=== PATIENT | female | born 1970 | race Caucasian/White ===

== ENCOUNTER → 2017-05-24 | Outpatient (CLI) | payer BC ==
[2017-05-24 17:19] LABS: Basophils # (A) 0.1 k/uL (0-0.2); Basophils % (A) 1 %; CH 30.7; CHCM 34.3; Eosinophils # (A) 0.1 k/uL (0-0.7); Eosinophils % (A) 2 %; HCT 43.9 % (34.0-46.0); HDW 2.78; HGB 15.1 gm/dL (11.4-16.0); Luc # (Auto) 0.11; Luc % (Auto) 1; Lymphocytes # (A) 1.4 k/uL (1.0-4.8); Lymphocytes % (A) 17 %; MCH 30.9 pg (25.0-35.0); MCHC 34.4 g/dL (31.0-37.0); MCV 89.8 fL (80.0-100.0); Mean Platelet Volume 8.6; Monocytes # (A) 0.6 k/uL (0-1.0); Monocytes % (A) 8 %; Neutrophils % (A) 72 %; RBC 4.89 m/uL (3.80-5.40); RDW 12.5 % (11.5-15.5); WBC 8.3 k/uL (3.8-10.6); WBC (Perox) 9.05
[2017-05-24 17:31] LABS: ALT 39 U/L (9-52); AST 18 U/L (14-36); Alkaline Phosphatase 58 U/L (38-126); Anion Gap 12 mmol/L; Blood Urea Nitrogen 11 mg/dL (7-17); Calcium 9.5 mg/dL (8.4-10.2); Carbon Dioxide 24 mmol/L (22-30); Chloride 106 mmol/L (98-107); Glucose 103 mg/dL (74-99); Non-African American GFR(MDRD) 59 (>60 ml/min/1.73 sqM); Potassium 4.1 mmol/L (3.5-5.1); Sodium 142 mmol/L (137-145); Total Bilirubin 2.6 mg/dL (0.2-1.3); Total Protein 6.7 g/dL (6.3-8.2)
== END | disposition home or self-care (01) ==
LOC: MMGSC 12:07
PROVIDERS: ATTEND Family Medicine
DX: R31.9 Hematuria, unspecified (principal); R82.90 Unspecified abnormal findings in urine; R10.9 Unspecified abdominal pain
CPT/HCPCS: 36415; 80053; 85025; 87086

== ENCOUNTER 2017-05-25 08:07 | Inpatient (IN) | payer BC ==
[2017-05-25] MEDS ORDERED: SODIUM CHLORIDE 0.9% 1,000 ML IV STA ×2 (08:47)
[2017-05-25] MEDS ORDERED: ONDANSETRON 4 MG/2 ML VIAL IVP STA (08:47)
[2017-05-25] MEDS ORDERED: HYDROmorphone 1 MG/ML 1 ML SYRINGE IVP STA (08:47)
--- NOTE | 2017-05-25 08:54 | ED ---
General Adult HPI - General Source: patient, RN notes reviewed Mode of arrival: ambulatory Limitations: no limitations <Jose L Hanna - Last Filed: 05/25/17 11:29> <Michele Tinoco - Last Filed: 05/25/17 11:31> - General Chief complaint: Abdominal Pain Stated complaint: Dx GALLBLADDER PROBLEM, PAIN Time Seen by Provider: 05/25/17 08:25 - History of Present Illness Initial comments: Patient 47-year-old female who presents emergency room today with a chief complaint of increased right upper quadrant pain. Patient does admit that she was seen at [facility] recently had a CT of her abdomen performed which was positive for gallbladder disease. She states her family doctor did call her and tell her this. States she was planning to follow surgeon next week for the pain is increased had a difficult time sleeping last night. Patient does admit to increased nausea vomiting difficult time eating. Patient denies any other complaints or associated symptoms. Patient denies any recent fever, chills, shortness of breath, chest pain, numbness or tingling, dysuria or hematuria, constipation or diarrhea, headaches or visual changes, or any other complaints. (Jose L Hanna) - Related Data Allergies Allergy/AdvReac Type Severity Reaction Status Date / Time gluten Allergy Diarrhea Verified 05/25/17 08:17 Milk Containing Products Allergy Diarrhea Verified 05/25/17 08:17 [Dairy] Penicillins Allergy Unknown Verified 05/25/17 08:17 Childhood Review of Systems ROS Other: All systems not noted in ROS Statement are negative. <Jose L Hanna - Last Filed: 05/25/17 11:29> ROS Other: All systems not noted in ROS Statement are negative. <Michele Tinoco - Last Filed: 05/25/17 11:31> ROS Statement: Those systems with pertinent positive or pertinent negative responses have been documented in the HPI. Past Medical History Past Medical History: No Reported History History of Any Multi-Drug Resistant Organisms: None Reported Past Surgical History: Adenoidectomy, Tonsillectomy Additional Past Surgical History / Comment(s): 3-DandC Past Psychological History: No Psychological Hx Reported Smoking Status: Never smoker Past Alcohol Use History: Daily, Occasional Past Drug Use History: None Reported <Jose L Hanna - Last Filed: 05/25/17 11:29> General Exam Limitations: no limitations <Jose L Hanna - Last Filed: 05/25/17 11:29> <Michele Tinoco - Last Filed: 05/25/17 11:31> - General Exam Comments Initial Comments: General: The patient is awake and alert, in no distress, and does not appear acutely ill. Eye: Pupils are equal, round and reactive to light, extra-ocular movements are intact. No nystagmus. There is normal conjunctiva bilaterally. No signs of icterus. Ears, nose, mouth and throat: There are moist mucous membranes and no oral lesions. Neck: The neck is supple, there is no tenderness or JVD. Cardiovascular: There is a regular rate and rhythm. No murmur, rub or gallop is appreciated. Respiratory: Lungs are clear to auscultation, respirations are non-labored, breath sounds are equal. No wheezes, stridor, rales, or rhonchi. Gastrointestinal: Soft, non-distended. Tender right upper quadrant. No rebound tenderness or guarding. No CVA tenderness. Bowel sounds are unremarkable. Musculoskeletal: Normal ROM, no tenderness. Strength 5/5. Sensation intact. Pulses equal bilaterally 2+. Neurological: A&O x 3. CN II-XII intact, There are no obvious motor or sensory deficits. Coordination appears grossly intact. Speech is normal. Skin: Skin is warm and dry and no rashes or lesions are noted. Psychiatric: Cooperative, appropriate mood & affect, normal judgment. (Jose L Hanna) Course <Jose L Hanna - Last Filed: 05/25/17 11:29> <Michele Tinoco - Last Filed: 05/25/17 11:31> Vital Signs 05/25/17 05/25/17 05/25/17 08:12 09:16 11:16 Temperature 97.5 F L Pulse Rate 98 81 117 H Respiratory 17 17 18 Rate Blood Pressure 124/92 123/89 117/72 O2 Sat by Pulse 98 98 96 Oximetry - Reevaluation(s) Reevaluation #1: 05/25/17 11:31 I did personally do a [id number] evaluation the patient did discuss findings with her and her . I also discussed the case with Dr. Edward who is the surgeon on-call today. Patient will be admitted with GI consultation. 05/25/17 11:31 I did review the imaging and reports. (Michele Tinoco) Medical Decision Making - Lab Data Result diagrams: 05/25/17 09:21 05/25/17 09:21 <Jose L Hanna - Last Filed: 05/25/17 11:29> - Lab Data Result diagrams: 05/25/17 09:21 05/25/17 09:21 <Michele Tinoco - Last Filed: 05/25/17 11:31> - Medical Decision Making Patient's [facility] from [facility] was reviewed showing evidence for an acute cholecystitis. Ultrasound does show dilated common bile duct with cholelithiasis. Patient's labs been reviewed. Patient currently resting comfortably. Case discussed with attending physician Dr. Tinoco who did discuss case with admitting surgeon Dr. Edward questioning GI consult. Patient will maintain nothing by mouth and is aware the plan. (Jose L Hanna) - Lab Data Lab Results 05/25/17 05/25/17 05/25/17 Range/Units 09:21 09:21 09:21 WBC 8.1 (3.8-10.6) k/uL RBC 4.99 (3.80-5.40) m/uL Hgb 15.7 (11.4-16.0) gm/dL Hct 43.6 (34.0-46.0) % MCV 87.4 (80.0-100.0) fL MCH 31.4 (25.0-35.0) pg MCHC 36.0 (31.0-37.0) g/dL RDW 12.4 (11.5-15.5) % Plt Count 221 (150-450) k/uL Neutrophils % 75 % Lymphocytes % 13 % Monocytes % 7 % Eosinophils % 3 % Basophils % 0 % Neutrophils # 6.0 (1.3-7.7) k/uL Lymphocytes # 1.0 (1.0-4.8) k/uL Monocytes # 0.6 (0-1.0) k/uL Eosinophils # 0.3 (0-0.7) k/uL Basophils # 0.0 (0-0.2) k/uL Sodium 142 (137-145) mmol/L Potassium 4.0 (3.5-5.1) mmol/L Chloride 105 (98-107) mmol/L Carbon Dioxide 24 (22-30) mmol/L Anion Gap 13 mmol/L BUN 13 (7-17) mg/dL Creatinine 0.80 (0.52-1.04) mg/dL Est GFR (MDRD) Af Amer >60 (>60 ml/min/1.73 sqM) Est GFR (MDRD) Non-Af >60 (>60 ml/min/1.73 sqM) Glucose 88 (74-99) mg/dL Calcium 9.6 (8.4-10.2) mg/dL Total Bilirubin 3.3 H (0.2-1.3) mg/dL AST 24 (14-36) U/L ALT 41 (9-52) U/L Alkaline Phosphatase 61 (38-126) U/L Total Protein 7.5 (6.3-8.2) g/dL Albumin 4.6 (3.5-5.0) g/dL Amylase 34 (30-110) U/L Lipase 59 (23-300) U/L Urine Color Light Brown Urine Appearance Cloudy H (Clear) Urine pH 6.0 (5.0-8.0) Ur Specific [place] 1.028 (1.001-1.035) Urine Protein 1+ H (Negative) Urine Glucose (UA) Negative (Negative) Urine Ketones 4+ H (Negative) Urine Blood Small H (Negative) Urine Nitrite Negative (Negative) Urine Bilirubin 1+ H (Negative) Urine Urobilinogen >12.0 (<2.0) mg/dL Ur Leukocyte Esterase Small H (Negative) Urine RBC 8 H (0-5) /hpf Urine WBC 3 (0-5) /hpf Ur Squamous Epith Cells 7 H (0-4) /hpf Urine Bacteria Rare H (None) /hpf Urine Mucus Few H (None) /hpf Urine Yeast (Budding) Rare H (None) /hpf Disposition Time of Disposition: 11:30 <Jose L Hanna - Last Filed: 05/25/17 11:29> <Michele Tinoco - Last Filed: 05/25/17 11:31> Clinical Impression: Acute cholecystitis Disposition: ADMITTED IP TO THIS [facility] Condition: Good Referrals: Rhonda Adkins MD [Primary Care Provider] - 1-2 days
[2017-05-25 09:35] LABS: Basophils % (A) 0 %; CH 30.9; CHCM 35.5; Eosinophils # (A) 0.3 k/uL (0-0.7); Eosinophils % (A) 3 %; HCT 43.6 % (34.0-46.0); HDW 2.86; HGB 15.7 gm/dL (11.4-16.0); Luc # (Auto) 0.13; Luc % (Auto) 2; Lymphocytes % (A) 13 %; MCH 31.4 pg (25.0-35.0); MCV 87.4 fL (80.0-100.0); Mean Platelet Volume 7.4; Monocytes # (A) 0.6 k/uL (0-1.0); Monocytes % (A) 7 %; Neutrophils % (A) 75 %; RBC 4.99 m/uL (3.80-5.40); RDW 12.4 % (11.5-15.5); WBC 8.1 k/uL (3.8-10.6); WBC (Perox) 7.67
[2017-05-25 09:40] LABS: Appearance,Urine Cloudy (Clear); Bacteria,Urine Rare /hpf; Bilirubin,Urine 1+ (Negative); Glucose,Urine (UA) Negative (Negative); Ketones,Urine 4+ (Negative); Leukocyte Esterase,Urine Small (Negative); Mucus,Urine Few /hpf; Nitrite,Urine Negative (Negative); Particle Count 26145; Protein,Urine 1+ (Negative); RBC,Urine 8 /hpf (0-5); Specific Gravity,Urine 1.028 (1.001-1.035); Squamous Epithelial Cell,Urine 7 /hpf (0-4); UA Billing (MACRO vs. MICRO) MICRO; Urobilinogen,Urine >12.0 mg/dL (<2.0); WBC,Urine 3 /hpf (0-5)
[2017-05-25 09:50] LABS: ALT 41 U/L (9-52); AST 24 U/L (14-36); Alkaline Phosphatase 61 U/L (38-126); Amylase 34 U/L (30-110); Anion Gap 13 mmol/L; Blood Urea Nitrogen 13 mg/dL (7-17); Calcium 9.6 mg/dL (8.4-10.2); Carbon Dioxide 24 mmol/L (22-30); Chloride 105 mmol/L (98-107); Glucose 88 mg/dL (74-99); Non-African American GFR(MDRD) >60 (>60 ml/min/1.73 sqM); Sodium 142 mmol/L (137-145); Total Bilirubin 3.3 mg/dL (0.2-1.3); Total Protein 7.5 g/dL (6.3-8.2)
--- NOTE | 2017-05-25 10:55 | US ---
EXAMINATION TYPE: US abdomen limited DATE OF EXAM: 05/25/2017 COMPARISON: NONE CLINICAL HISTORY: Pain. Abdomen pain and N/V x 4 days EXAM MEASUREMENTS: Liver Length: 19.1 cm Gallbladder Wall: 0.7 cm CBD: 0.8 cm Right Kidney: 10.1 x 4.7 x 5.1 cm Pancreas: visualized portions wnl, body and tail obscured by overlying midline bowel gas Liver: enlarged at 19.1cm Gallbladder: cholelithiasis, thickened wall at 0.7cm Evidence for sonographic Salgado's sign: yes CBD: dilated at 0.8cm Right Kidney: visualized portions wnl, inferior pole limited by overlying bowel gas Visualized liver is slightly heterogeneous without worrisome intrahepatic mass or ductal dilatation s een. Common bile duct is mildly dilated at 8 mm. There are multiple mobile shadowing stones in gallbl adder. Gallbladder wall is thickened up to 7 mm. No pericholecystic fluid is present. Sonographic Mur phy's sign is positive. IMPRESSION: Multiple shadowing mobile gallstones with abnormal gallbladder wall thickening and positi ve sonographic Salgado's sign all increased suspicion for acute cholecystitis given patient's symptoms . Surgical consultation advised.
[2017-05-25] MEDS ORDERED: NALOXONE 0.4 MG/ML 1 ML VIAL IV PRN (11:30)
[2017-05-25 14:35] LABS: ALT 39 U/L (9-52); AST 21 U/L (14-36); Alkaline Phosphatase 54 U/L (38-126); Anion Gap 10 mmol/L; Bilirubin, Delta 0.4 mg/dL (0.0-0.2); Blood Urea Nitrogen 13 mg/dL (7-17); Calcium 8.7 mg/dL (8.4-10.2); Carbon Dioxide 24 mmol/L (22-30); Chloride 107 mmol/L (98-107); Glucose 79 mg/dL (74-99); Non-African American GFR(MDRD) >60 (>60 ml/min/1.73 sqM); Sodium 141 mmol/L (137-145); Total Bilirubin 2.3 mg/dL (0.2-1.3); Total Protein 6.2 g/dL (6.3-8.2)
--- NOTE | 2017-05-25 15:51 | MR ---
"EXAMINATION TYPE: MR MRCP DATE OF EXAM: 05/25/2017 COMPARISON: Limited abdominal ultrasound earlier today HISTORY: Pain nausea and vomiting for 4 days with recent abnormal ultrasound Standard multiplanar, multisequence MRI departmental protocol Multiplanar, multisequence images of the abdomen were acquired. Thin and thick slice MRCP imaging is acquired. FINDINGS: Correlating with ultrasound there are multiple stones noted filling gallbladder with abnorm al gallbladder wall thickening measuring up to 8 mm along inferior right margin and surrounding peric holecystic ascites identified. Common bile duct is mildly dilated at 8 mm without significant intrahe patic biliary dilatation. Some motion artifact degradation is seen but there is no obvious intralumin al stone. There are tiny stones in the head of gallbladder extending into the cystic duct seen best o n coronal images 21 and 22. Lung bases are grossly clear. Spleen is mildly enlarged at 13 cm on long axis on coronal image 29. A small hiatal hernia is seen. Pancreatic duct is visualized but not suspiciously dilated. There is no suspicious adrenal or renal mass. No hydronephrosis is evident bilaterally. There is no suspicious gr eater than 1 cm abdominal adenopathy. There is no suspicious bowel dilatation. Visualized osseous str uctures are intact. IMPRESSION: MRI findings correlate with ultrasound findings and are strongly suspicious for acute cholecystitis. There is mild extra hepatic biliary dilatation without intrahepatic biliary dilatation confirmed. No obvious stone in common bile duct though there is limitation related to motion. A few tiny stones are present in gallbladder neck extending into cystic duct. A Stewart message has been communicated to Michelle Gold MD via the [employer] | Critical Re sult system on 05/25/2017 3:48 PM, Message ID [id number]. A Stewart message has been communicated to Carmina Triana MD via the [employer] Critical Result system on 05/25/2017 3:48 PM, Message ID [id number]."
[2017-05-25 16:40] LABS: Hepatitis B Surface Ag Index 0.05
[2017-05-25 16:46] LABS: Hepatitis B Core IgM Index 0.02
[2017-05-25 16:57] LABS: Hepatitis C Virus IgG Ab Negative (Negative); Hepatitis C Virus IgG Index 0.01
[2017-05-25] MEDS: HYDROmorphone 1 MG/ML 1 ML SYRINGE IV PRN (16:57)
[2017-05-25] MEDS: ONDANSETRON 4 MG/2 ML VIAL IVP PRN (16:58)
--- NOTE | 2017-05-25 19:48 | P.GSHP ---
History of Present Illness H&P Date: 05/25/17 Chief Complaint: Acute cholecystitis The patient is a 47-year-old female who presented after a 5 day history of right upper quadrant abdominal pain. She had seen her primary care provider yesterday where a CT of the abdomen and pelvis was obtained demonstrating gallstones on computed tomography scan. She then noticed earlier this morning alongside her new onset jaundice. She reported worsening right upper quadrant abdominal pain. She has a family history of gallbladder disease in her mother and sister. She denies any previous jaundice. She also had a gallbladder ultrasound demonstrating a dilated CBD including acute cholecystitis. As a result, she has been admitted. - Review of Systems Comment: CONSTITUTIONAL: Denies any fever or chills. Denies recent weight loss or weight gain. HEENT: Denies any trouble with vision, hearing or nosebleeds. No difficulty swallowing. LYMPHATIC: The patient denies any lumps and bumps around the neck. ENDOCRINE: Denies any thyroid disorders. Denies any blood sugar glucose intolerance. RESPIRATORY: Denies pneumonia. Denies any troubles with breathing or dyspnea on exertion. CARDIOVASCULAR: Denies any chest pain, palpitations, or recent heart attacks. GASTROINTESTINAL: Has heart burn. No constipation or bright red blood per rectum. GENITOURINARY: Denies any blood in urine or increased urinary frequency. MUSCULOSKELETAL: Denies any back pain, stiffness, joint arthritis. NEUROLOGIC: Denies any numbness or tingling along the distal extremities. No seizure disorders or headaches. PSYCHIATRIC: Denies depression or suidical ideation. HEMATOLOGIC: Denies any abnormal bleeding or bruising. Past Medical History Past Medical History: No Reported History History of Any Multi-Drug Resistant Organisms: None Reported Past Surgical History: Adenoidectomy, Tonsillectomy Additional Past Surgical History / Comment(s): 3-DandC Past Psychological History: No Psychological Hx Reported Smoking Status: Former smoker Past Alcohol Use History: Daily, Occasional Past Drug Use History: None Reported - Past Family History Mother Family Medical History: No Reported History Medications and Allergies Home Medications Medication Instructions Recorded Confirmed Type Fluticasone Nasal Hardy [Flonase 1 spray EA NOSTRIL DAILY PRN 05/25/17 05/25/17 History Nasal Hardy] Allergies Allergy/AdvReac Type Severity Reaction Status Date / Time casein Allergy Congestion Verified 05/25/17 11:42 Penicillins Allergy Unknown Verified 05/25/17 11:42 Childhood gluten AdvReac Abdominal Verified 05/25/17 11:42 Pain Milk Containing Products AdvReac Chest Pain Verified 05/25/17 13:18 Surgical - Exam Vital Signs Temp Pulse Resp BP Pulse Ox 97.5 F L 98 17 124/92 98 05/25/17 08:12 05/25/17 08:12 05/25/17 08:12 05/25/17 08:12 05/25/17 08:12 GENERAL: Well developed and in mild distress. Pleasant. HEENT: Has lee jaundice. Extraocular movements grossly intact. Moist buccal mucosa. Head is atraumatic, normocephalic. Hears conversational speech. No nasal drainage. NECK: Supple without lymphadenopathy. No JV distention. CHEST: Non-labored respirations and equal bilateral excursions. CARDIOVASCULAR: Regular rate and rhythm. Palpable 2+ radial pulses. ABDOMEN: Soft. Nondistended. Tender along the right upper quadrant and epigastrium. MUSCULOSKELETAL: No clubbing, cyanosis or edema. NEUROLOGIC: No focal or lateralizing signs. Cranial nerves II-12 grossly limits. PSYCH: Appropriate affect. Alert and oriented to person, place and time. SKIN: Good skin turgor. Will perfused. Results - Labs 05/25/17 09:21 05/25/17 13:53 Abnormal Lab Results - Last 24 Hours (Table) 05/25/17 05/25/17 Range/Units 09:21 09:21 Total Bilirubin 3.3 H (0.2-1.3) mg/dL Urine Appearance Cloudy H (Clear) Urine Protein 1+ H (Negative) Urine Ketones 4+ H (Negative) Urine Blood Small H (Negative) Urine Bilirubin 1+ H (Negative) Ur Leukocyte Esterase Small H (Negative) Urine RBC 8 H (0-5) /hpf Ur Squamous Epith Cells 7 H (0-4) /hpf Urine Bacteria Rare H (None) /hpf Urine Mucus Few H (None) /hpf Urine Yeast (Budding) Rare H (None) /hpf Diabetes panel 05/25/17 Range/Units 09:21 Sodium 142 (137-145) mmol/L Potassium 4.0 (3.5-5.1) mmol/L Chloride 105 (98-107) mmol/L Carbon Dioxide 24 (22-30) mmol/L BUN 13 (7-17) mg/dL Creatinine 0.80 (0.52-1.04) mg/dL Glucose 88 (74-99) mg/dL Calcium 9.6 (8.4-10.2) mg/dL AST 24 (14-36) U/L ALT 41 (9-52) U/L Alkaline Phosphatase 61 (38-126) U/L Total Protein 7.5 (6.3-8.2) g/dL Albumin 4.6 (3.5-5.0) g/dL Calcium panel 05/25/17 Range/Units 09:21 Calcium 9.6 (8.4-10.2) mg/dL Albumin 4.6 (3.5-5.0) g/dL Pituitary panel 05/25/17 Range/Units 09:21 Sodium 142 (137-145) mmol/L Potassium 4.0 (3.5-5.1) mmol/L Chloride 105 (98-107) mmol/L Carbon Dioxide 24 (22-30) mmol/L BUN 13 (7-17) mg/dL Creatinine 0.80 (0.52-1.04) mg/dL Glucose 88 (74-99) mg/dL Calcium 9.6 (8.4-10.2) mg/dL Adrenal panel 05/25/17 Range/Units 09:21 Sodium 142 (137-145) mmol/L Potassium 4.0 (3.5-5.1) mmol/L Chloride 105 (98-107) mmol/L Carbon Dioxide 24 (22-30) mmol/L BUN 13 (7-17) mg/dL Creatinine 0.80 (0.52-1.04) mg/dL Glucose 88 (74-99) mg/dL Calcium 9.6 (8.4-10.2) mg/dL Total Bilirubin 3.3 H (0.2-1.3) mg/dL AST 24 (14-36) U/L ALT 41 (9-52) U/L Alkaline Phosphatase 61 (38-126) U/L Total Protein 7.5 (6.3-8.2) g/dL Albumin 4.6 (3.5-5.0) g/dL - Imaging CT scan - abdomen: report reviewed, image reviewed US - abdomen: report reviewed, image reviewed (All images personally reviewed. Consistent with thickened gallbladder wall and multiple gallstones.) Assessment and Plan (1) Jaundice Status: Acute (2) Choledocholithiasis with acute cholecystitis Status: Acute (3) Obesity (BMI 30.0-34.9) Status: Acute (4) Gastroesophageal reflux Status: Acute (5) Right upper quadrant abdominal pain Status: Acute (6) Acute cholecystitis Status: Acute (7) Family history of gallbladder disease Status: Acute (8) Hyperbilirubinemia Status: Acute Plan: 1. Recommend repeat conference of metabolic panel to evaluate trend of her bilirubin levels. Bilirubin level compared to yesterday was elevated. 2. Recommend nothing by mouth until evaluation with tube laser operator. 3. Recommend consultation to tube laser operator for evaluation for ERCP. 4. Recommend laparoscopic cholecystectomy. 5. Full inpatient admission more than 11/01 advised with choledocholithiasis and acute cholecystitis. 6. All benefits and risks of surgical intervention were also described including care plan. ADDENDUM: 1. I personally contacted and spoke with the tube laser operator. Her recommendation includes an MRCP. 2. Repeat CMP demonstrates improvement of her bilirubin level. 3. Recommend laparoscopic cholecystectomy as soon as possible.
[2017-05-26] MEDS: HYDROmorphone 1 MG/ML 1 ML SYRINGE IV PRN ×2 (01:20→09:31)
[2017-05-26] MEDS: ONDANSETRON 4 MG/2 ML VIAL IVP PRN ×2 (01:20→09:31)
[2017-05-26 06:52] LABS: Basophils % (A) 1 %; CH 31.9; CHCM 35.3; Eosinophils # (A) 0.2 k/uL (0-0.7); Eosinophils % (A) 4 %; HCT 39.1 % (34.0-46.0); HDW 2.88; HGB 13.2 gm/dL (11.4-16.0); Luc # (Auto) 0.12; Luc % (Auto) 2; Lymphocytes % (A) 15 %; MCH 30.6 pg (25.0-35.0); MCHC 33.8 g/dL (31.0-37.0); MCV 90.6 fL (80.0-100.0); Mean Platelet Volume 8.5; Monocytes # (A) 0.5 k/uL (0-1.0); Monocytes % (A) 7 %; Neutrophils # (A) 4.8 k/uL (1.3-7.7); Neutrophils % (A) 72 %; RBC 4.32 m/uL (3.80-5.40); WBC 6.6 k/uL (3.8-10.6); WBC (Perox) 6.74
[2017-05-26 07:12] LABS: ALT 37 U/L (9-52); AST 17 U/L (14-36); Alkaline Phosphatase 54 U/L (38-126); Amylase <30 U/L (30-110); Anion Gap 11 mmol/L; Bilirubin, Delta 0.3 mg/dL (0.0-0.2); Blood Urea Nitrogen 13 mg/dL (7-17); Calcium 8.8 mg/dL (8.4-10.2); Carbon Dioxide 23 mmol/L (22-30); Chloride 108 mmol/L (98-107); Glucose 72 mg/dL (74-99); Non-African American GFR(MDRD) >60 (>60 ml/min/1.73 sqM); Potassium 4.2 mmol/L (3.5-5.1); Sodium 142 mmol/L (137-145); Total Bilirubin 1.7 mg/dL (0.2-1.3); Total Protein 5.9 g/dL (6.3-8.2)
--- NOTE | 2017-05-26 09:06 | P.HPADDEND ---
H&P Addendum H&P Addendum Date: 05/26/17 MRCP reviewed demonstrating dilated common bile duct and stones along the gallbladder neck. Total bilirubin is trending downwards. We'll proceed with laparoscopic cholecystectomy.
[2017-05-26] MEDS ORDERED: ACETAMINOPHEN IV (For NPO) 1,000 MG in EMPTY BAG 1 BAG IVPB ONE (12:29)
[2017-05-26] MEDS ORDERED: HEPARIN SODIUM,PORCINE 5,000 UNIT/ML 1 ML VIAL SQ STA (12:30)
[2017-05-26] MEDS ORDERED: CLINDAMYCIN 900 MG in DEXTROSE 5% IN WATER 50 ML IVPB STA ×2 (12:30)
[2017-05-26] MEDS ORDERED: KETOROLAC 30 MG/ML 1 ML VIAL ONE (12:38)
[2017-05-26] MEDS ORDERED: HYDROmorphone (PF) 1 MG/ML ONE (12:38)
[2017-05-26] MEDS ORDERED: MIDAZOLAM 2 MG/2 ML VIAL ONE (12:38)
[2017-05-26] MEDS ORDERED: PROPOFOL 10 MG/ML 20 ML VIAL IV ONE (12:38)
[2017-05-26] MEDS ORDERED: ONDANSETRON 4 MG/2 ML VIAL ONE (12:38)
[2017-05-26] MEDS ORDERED: LIDOCAINE 1% INJ 10MG/ML (20 ML MDV) ONE (12:38)
[2017-05-26] MEDS ORDERED: fentaNYL (PF) 50 MCG/ML 2 ML AMP ONE (12:38)
[2017-05-26] MEDS ORDERED: ROCURONIUM BROMIDE 10 MG/ML 10 ML VIAL IV ONE (12:38)
[2017-05-26] MEDS ORDERED: SUCCINYLCHOLINE CHLORIDE 100 MG/5 ML SYR IV ONE (12:38)
[2017-05-26] MEDS ORDERED: LACTATED RINGERS 750 ML IV ONE (12:45)
[2017-05-26] MEDS ORDERED: BUPIVACAINE-EPI 0.5%-1:200,000 10 ML VIAL SQ ONE (13:00)
[2017-05-26] MEDS ORDERED: LACTATED RINGERS 1,000 ML IV ONE (13:26)
--- NOTE | 2017-05-26 14:06 | CONS ---
CONSULTATION DATE OF SERVICE: 05/26/17 REQUESTING PHYSICIAN: Dr. Gold. REASON FOR CONSULTATION: Elevated T-bili and possible ERCP. HISTORY OF PRESENT ILLNESS: The patient is a 47-year-old, white female, admitted to the hospital with acute onset of severe epigastric and right upper quadrant abdominal pain that started 2 days ago. The pain continued to progressively get worse. She saw her PCP on an outpatient basis. CT abdomen pelvis done that showed multiple gallstones. She was advised to follow up with the surgeon next week. However in the mean time, the pain continued to progressively get worse. Then she started noticing some dark colored urine. Hence came into the emergency room and admitted to the hospital further evaluation and treatment. The reason we are consulted is at the time of admission to the hospital serum bilirubin was 2.3, which increased to 3.3, and hence for possible ERCP. Surprisingly her serum transaminases including ALT and AST are completely within normal limits. Today, the patient states that she is feeling better. Her epigastric pain is improving. No nausea or vomiting. PAST MEDICAL HISTORY: Unremarkable. PAST SURGICAL HISTORY: Tonsillectomy and adenoidectomy. MEDICATIONS: At home none. ALLERGIES: ALLERGIES TO PENICILLIN. SOCIAL HISTORY: No smoking. No alcohol use. FAMILY HISTORY: Family history unremarkable. REVIEW OF SYSTEMS: Cardiopulmonary is no chest pain, shortness of breath. Genitourinary: No dysuria or hematuria. Musculoskeletal unremarkable. Skin: Unremarkable. Endocrine: Unremarkable. Psychiatric: Unremarkable. Neurological: Unremarkable. ENT/Vision: Unremarkable. Constitutional: No recent weight loss. No fever, chills or night sweats. PHYSICAL EXAMINATION: She appears comfortable. No apparent distress. VITAL SIGNS: Stable. Blood pressure 117/79, pulse is 70, temperature 97. HEENT examination unremarkable. Conjunctivae pink. Sclerae anicteric. Oral cavity no lesions. Neck no jugular venous distention or lymph node enlargement. Chest clear to auscultation. HEART: Regular rate and rhythm. ABDOMEN: Soft. Mild tenderness in the epigastric area. Bowel sounds positive. No organomegaly. EXTREMITIES: No pedal edema. SKIN: No rashes. NEUROLOGIC: Alert and oriented x3. No focal deficits. LABORATORY DATA: Labs done at the time of admission to the hospital: T-bilirubin was 3.3, this morning it is 1.7. ALT, AST and alkaline phosphatase are all within normal limits. WBC is 8.1, hemoglobin 13.7, platelets are normal. Amylase and lipase are normal. CT of the abdomen did show multiple gallstones and mild prominence of the common bile duct measuring 9 mm in size. The patient did have an MRCP done yesterday that showed no filling defects in the common bile duct. Multiple stones noted within the gallbladder. IMPRESSION: This is a lady who presents with epigastric and right upper quadrant abdominal pain for the last 2 days duration. Noted to have gallstones and recent imaging studies/CT of abdomen and pelvis which also showed some dilated common bile duct at 9 mm. She is noted to have mild elevation of T-bili at 3.3, and fractionation of the T-bilirubin most of it is unconjugated and serum transaminases are within normal limits. It appears most likely we are dealing with Gilbert's syndrome with unconjugated hyperbilirubinemia at this time. She did have an MRCP done last night that showed no filling defects in the common bile duct. RECOMMENDATIONS: 1. No indication for ERCP at this time. 2. She can proceed with her planned gallbladder surgery today. Thank you for this consultation. MMODL / IJN: [id number] /
[2017-05-26] MEDS ORDERED: LEVOFLOXACIN 500MG-D5W PMX 500 MG in DEXTROSE/WATER 1 100ML.BAG IVPB STA (15:11)
[2017-05-26] MEDS ORDERED: NALOXONE 0.4 MG/ML 1 ML VIAL IV PRN (15:12)
[2017-05-26] MEDS ORDERED: SCOPOLAMINE 1.5MG/72HR PATCH TRANSDERM STA (15:14)
[2017-05-26] MEDS ORDERED: METOCLOPRAMIDE 5 MG/ML 2 ML VIAL IVP PRN (15:15)
[2017-05-26] MEDS ORDERED: FLUTICASONE 50MCG/SPRAY NASAL 16GM EA NOSTRIL PRN (15:15)
--- NOTE | 2017-05-26 15:18 | P.PCN ---
Date of Procedure: 05/26/17 Preoperative Diagnosis: Acute cholecystitis, jaundice, Gilbert syndrome, choledocholithiasis, morbid obesity Postoperative Diagnosis: Same, hydrops cholecystitis with cystic duct obstruction Procedure(s) Performed: Laparoscopic cholecystectomy Implants: Anesthesia: GETA, local Surgeon: Michelle Gold Estimated Blood Loss (ml): 50 Pathology: none sent (Gallbladder) Condition: stable Disposition: floor Indications for Procedure: Operative Findings: 1. Moderately dilated gallbladder with acute cystic duct obstruction causing hydrops cholecystitis 2. Left indirect inguinal hernia, type II, Nyhus, 2 cm 3. Extremely large gallbladder with multiple large gallstones requiring extension of left upper quadrant incision over 4 cm in size. 4. Extensive lysis of adhesions and mobilization of the gallbladder adding complexity to case by an additional hour. 5. Large clip micropaleontologist used to addressed cystic duct and use of Sonicision. 6. Extremely thick and gallbladder wall adding complexity to the case including handling and mobilization of the gallbladder. Description of Procedure:
[2017-05-26 16:03] LABS: ALT 41 U/L (9-52); AST 31 U/L (14-36); Alkaline Phosphatase 55 U/L (38-126); Anion Gap 10 mmol/L; Blood Urea Nitrogen 13 mg/dL (7-17); Calcium 8.4 mg/dL (8.4-10.2); Carbon Dioxide 21 mmol/L (22-30); Chloride 108 mmol/L (98-107); Glucose 105 mg/dL (74-99); Non-African American GFR(MDRD) >60 (>60 ml/min/1.73 sqM); Potassium 3.9 mmol/L (3.5-5.1); Sodium 139 mmol/L (137-145); Total Bilirubin 1.6 mg/dL (0.2-1.3); Total Protein 5.7 g/dL (6.3-8.2)
[2017-05-26] MEDS ORDERED: TRIMETHOBENZAMIDE 100 MG/ML 2 ML VIAL IM STA (17:23)
--- NOTE | 2017-05-26 17:26 | P.PN ---
Progress Note - Text Patient's labs reviewed. She reports severe nausea. Medications adjusted. Continue IV antibiotics. Repeat chemistries in the morning.
[2017-05-26] MEDS ORDERED: SODIUM CHLORIDE 0.9% 1,000 ML IV ONE (17:27)
[2017-05-26] MEDS ORDERED: ONDANSETRON 4 MG/2 ML VIAL IVP SCH (18:00)
[2017-05-26] MEDS ORDERED: ONDANSETRON 4 MG/2 ML VIAL IVP PRN (18:24)
[2017-05-26] MEDS: METOCLOPRAMIDE 5 MG/ML 2 ML VIAL IVP SCH ×2 (19:13→23:18)
[2017-05-27] MEDS: HYDROmorphone 1 MG/ML 1 ML SYRINGE IV PRN (05:57)
[2017-05-27] MEDS: METOCLOPRAMIDE 5 MG/ML 2 ML VIAL IVP SCH ×2 (06:55→11:36)
[2017-05-27] MEDS ORDERED: LEVOFLOXACIN 500MG-D5W PMX 500 MG in DEXTROSE/WATER 1 100ML.BAG IVPB SCH (07:00)
[2017-05-27 07:18] LABS: ALT 41 U/L (9-52); AST 32 U/L (14-36); Alkaline Phosphatase 51 U/L (38-126); Anion Gap 11 mmol/L; Blood Urea Nitrogen 11 mg/dL (7-17); Calcium 8.8 mg/dL (8.4-10.2); Carbon Dioxide 21 mmol/L (22-30); Chloride 108 mmol/L (98-107); Glucose 86 mg/dL (74-99); Magnesium 1.8 mg/dL (1.6-2.3); Non-African American GFR(MDRD) >60 (>60 ml/min/1.73 sqM); Potassium 4.1 mmol/L (3.5-5.1); Sodium 140 mmol/L (137-145); Total Protein 5.4 g/dL (6.3-8.2)
[2017-05-27 09:01] VITALS: BP 127/92; PULSE 79; RESP 12; TEMP 98.2
--- NOTE | 2017-05-27 13:00 | P.PN ---
Subjective Principal diagnosis: Acute cholecystitis with hydrops cholecystitis The patient as well as that they 1 status post extensive lysis of adhesions and laparoscopic cholecystectomy. "I feel great.". She is ambulating and passing flatus and having bowel movements. She is tolerating diet. Jaundice is completely resolved. Objective - Vital Signs Vital signs: Vital Signs Temp 98.2 F 05/27/17 07:00 Pulse 79 05/27/17 07:00 Resp 12 05/27/17 07:00 BP 127/92 05/27/17 07:00 Pulse Ox 98 05/27/17 07:00 Intake & Output 05/26/17 05/27/17 05/27/17 18:59 06:59 18:59 Intake Total 1256 1400 Output Total 70 1200 Balance 1186 200 Intake: IV 1256 Oral 1400 Output: Urine 1200 Emesis 20 Estimated Blood Loss 50 Other: Voiding Method Toilet Toilet # Voids 4 2 # Emeses 1 - Exam GENERAL: Well developed and in no acute distress. Pleasant. HEENT: No sclera icterus. Extraocular movements grossly intact. Moist buccal mucosa. Head is atraumatic, normocephalic. Hears conversational speech. No nasal drainage. NECK: Supple without lymphadenopathy. No JV distention. CHEST: Non-labored respirations and equal bilateral excursions. CARDIOVASCULAR: Regular rate and rhythm. Palpable 2+ radial pulses. ABDOMEN: Soft, nontender. Nondistended. MUSCULOSKELETAL: No clubbing, cyanosis or edema. NEUROLOGIC: No focal or lateralizing signs. PSYCH: Appropriate affect. Alert and oriented to person, place and time. - Labs CBC & Chem 7: 05/26/17 06:39 05/27/17 06:29 Labs: Abnormal Lab Results - Last 24 Hours (Table) 05/26/17 05/27/17 Range/Units 15:41 06:29 Chloride 108 H 108 H (98-107) mmol/L Carbon Dioxide 21 L 21 L (22-30) mmol/L Glucose 105 H (74-99) mg/dL Total Bilirubin 1.6 H (0.2-1.3) mg/dL Total Protein 5.7 L 5.4 L (6.3-8.2) g/dL Albumin 3.4 L 3.2 L (3.5-5.0) g/dL Assessment and Plan (1) Jaundice Status: Acute (2) Choledocholithiasis with acute cholecystitis Status: Acute (3) Obesity (BMI 30.0-34.9) Status: Acute (4) Gastroesophageal reflux Status: Acute (5) Right upper quadrant abdominal pain Status: Acute (6) Acute cholecystitis Status: Acute (7) Family history of gallbladder disease Status: Acute (8) Hyperbilirubinemia Status: Acute (9) Calculus of cystic duct with acute cholecystitis Status: Acute Plan: 1. Clinically she has recovered well. 2. No return to work until seen in the office. 3. Laboratory results have normalized. 4. Okay for discharge with follow-up in the office next week.
--- NOTE | 2017-05-27 13:03 | P.DS ---
Providers Date of admission: 05/25/17 11:31 Expected date of discharge: 05/27/17 Attending physician: Michelle Gold Consults: 05/25/17 11:30 Consult Physician Stat Consulting Provider: Carmina Triana Consult Reason/Comments: cholecystitis Do you want consulting provider notified?: Yes Primary care physician: Rhonda Adkins - Discharge Diagnosis(es) (1) Jaundice Status: Acute (2) Choledocholithiasis with acute cholecystitis Status: Acute (3) Obesity (BMI 30.0-34.9) Status: Acute (4) Gastroesophageal reflux Status: Acute (5) Right upper quadrant abdominal pain Status: Acute (6) Acute cholecystitis Status: Acute (7) Family history of gallbladder disease Status: Acute (8) Hyperbilirubinemia Status: Acute (9) Calculus of cystic duct with acute cholecystitis Status: Acute (10) Gilbert syndrome Status: Acute (11) Gallbladder hydrops Status: Acute Hospital Course: The patient is a 39-year-old female who was admitted secondary to severe epigastric right upper quadrant abdominal pain. She came in with jaundice. Additional studies including ultrasound as well as MRCP was performed consistent with severe acute cholecystitis and to evaluate for choledocholithiasis. Secondary to her jaundice, full hepatitis panel including GI consultation was sought. She underwent a laparoscopic cholecystectomy with extensive lysis of adhesions. Acute cystic duct obstruction including hydrops gallbladder was identified. Postoperatively, her abdominal pain had resolved. She was tolerating diet. Her jaundice had resolved. Pertinent Studies: MRCP consistent with multiple gallstones including severe acute cholecystitis US of gallbladder obtained consistent with common bile duct dilation including acute cholecystitis Procedures: Laparoscopic cholecystectomy with extensive lysis of adhesions for hydrops cholecystitis Patient Condition at Discharge: Good Plan - Discharge Summary New Discharge Prescriptions: New Hydrocodone/Acetaminophen [[place] 5-325] 1 - 2 each PO Q6HR PRN #15 tab PRN Reason: Pain Ibuprofen [Motrin] 600 mg PO Q8HR PRN #30 tab PRN Reason: Pain No Action Fluticasone Nasal [place] [Flonase Nasal Avinger] 1 spray EA NOSTRIL DAILY PRN PRN Reason: Allergy Symptoms Discharge Medication List Fluticasone Nasal [place] [Flonase Nasal [place]] 1 spray EA NOSTRIL DAILY PRN 05/25 [History] Hydrocodone/Acetaminophen [[place] 5-325] 1 - 2 each PO Q6HR PRN #15 tab 05/26/17 [Rx] Ibuprofen [Motrin] 600 mg PO Q8HR PRN #30 tab 05/26/17 [Rx] Follow up Appointment(s)/Referral(s): Michelle Gold MD [STAFF PHYSICIAN] - 06/04/17 Rhonda Adkins MD [Primary Care Provider] - 1-2 days Patient Instructions/Handouts: Low Fat Diet (GEN), Laparoscopic Cholecystectomy (DC), Jaundice (DC) Activity/Diet/Wound Care/Special Instructions: No lifting over 4 pounds in 2 weeks. May shower. No bath tub soaks. Low-fat diet. Discharge Disposition: HOME SELF-CARE
--- NOTE | 2017-06-09 21:07 | P.OP ---
Date of Procedure: 05/26/17 Description of Procedure: SURGEON: MARIA E CLAIRE MD HIGH DENSITY FINISHING OPERATOR: None. PREOPERATIVE DIAGNOSES: 1. Jaundice. 2. Symptomatic cholelithiasis. 3. Epigastric abdominal pain. 4. Right upper quadrant abdominal pain. 5. Obesity due to excess calories. 6. Body mass index 34.7. 7. Gastroesophageal reflux disease. 8. Right upper quadrant abdominal pain. 9. Acute cholecystitis. 10. Choledocholithiasis. 11. Gilbert syndrome. POSTOPERATIVE DIAGNOSES: 1. Jaundice. 2. Symptomatic cholelithiasis. 3. Epigastric abdominal pain. 4. Right upper quadrant abdominal pain. 5. Obesity due to excess calories. 6. Body mass index 34.7. 7. Gastroesophageal reflux disease. 8. Right upper quadrant abdominal pain. 9. Hydrops acute cholecystitis due to cystic duct obstruction. 10. Choledocholithiasis. 11. Gilbert syndrome. 12. Left indirect inguinal hernia. OPERATION: Laparoscopic cholecystectomy ANESTHESIA: General with local anesthetic ESTIMATED BLOOD LOSS: 50 mL. SPECIMENS REMOVED: Gallbladder. COMPLICATIONS: None. INDICATIONS: The patient is a 47-year-old male who presents with jaundice including choledocholithiasis with acute cholecystitis. Surgical intervention with a laparoscopic cholecystectomy was described at length including injury to the biliary tree, bleeding, infection, need for further surgery. Informed consent was obtained. DESCRIPTION OF THE PROCEDURE: The patient was brought to the operating room, laid in supine position. After general induction, the abdomen was prepped and draped in a standard sterile fashion. Prior to incision, a timeout protocol was confirmed with surgical team regarding patient's name, procedure to be performed including preoperative medications for which she had received heparin 5000 units subcutaneously as well as bilateral SCDs for DVT prophylaxis. A transverse 5 mm incision was made above the umbilicus and off to the right of the midline. Please note the skin was localized prior to incision. A 0 degree 5-mm laparoscopic trocar entry was performed and entered into the peritoneal cavity. Diagnostic laparoscopy confirmed no injury to bowel, viscera or mesentery. Moderate size left inguinal hernia was identified. The gallbladder wall was extremely thickened. The cystic duct was dilated consistent with cystic duct obstruction. Extremely large gallstone of over 4 cm was found along the gallbladder fundus. The liver serosa was completely unremarkable. Next, two 5 mm trocars were placed along the right costal margin followed by a 11 mm port at the left upper quadrant. The patient was placed in steep reverse Trendelenburg position with the right side up. The gallbladder fundus was retracted over the dome of the liver. Initial attention was brought to the infundibulum which was gently retracted in the inferior lateral approach. Using a Kittner, the cystic duct including the cystic artery was carefully skeletonized. The cystic duct was dilated and a large clip marriage performer 12 mm was selected. A 12 mm trocar was exchanged for a 11 mm trocar. Using a large clip marriage performer 2 clips were placed proximally, and 2 clip was placed distally along the cystic duct and then cut. Again care was taken to avoid any injury to the biliary tree as the common bile duct was clearly visualized during this portion of dissection. Next, the cystic artery was clipped twice proximally, once distally and then cauterized. Sonicision was used to dissect the cystic structures. Clear bile was found emanating from the gallbladder consistent with hydrops. Electro-Bovie cautery was used to remove the gallbladder from the hepatic fossa without decompression of the gallbladder. Hemostasis was checked and found to be adequate. The gallbladder was removed from the abdominal cavity using an Endo Catch bag and passed off for further pathological analysis. The incision along the left upper quadrant was extended to accommodate a 4 cm gallstone. All instruments and pneumoperitoneum were removed from the abdominal cavity. The fascial defect for the 11-mm port site was oversewn using an 0 Vicryl and a Scotty Epstein. The rest of the incisions were reapproximated using 4-0 Monocryl in an interrupted subcuticular fashion. Dermabond was applied to the skin. At the end of the procedure, needle, sponge, and instrument count was verified correct by surgical dressing maker. The patient had tolerated the procedure well and was taken to postanesthesia care unit in stable condition. Intraoperative films were discussed and reviewed with the patient's family who were pleased with the level of care. Operative Findings: 1. Moderately dilated gallbladder with acute cystic duct obstruction causing hydrops cholecystitis 2. Left indirect inguinal hernia, type II, [place], 2 cm 3. Extremely large gallbladder with multiple large gallstones requiring extension of left upper quadrant incision over 4 cm in size. 4. Extensive lysis of adhesions and mobilization of the gallbladder adding complexity to case by an additional hour. 5. Large clip marriage performer used to address cystic duct and use of Sonicision. 6. Extremely thickened gallbladder wall adding complexity to the case including handling and mobilization of the gallbladder.
== END 2017-05-27 12:35 | disposition home or self-care (01) | DRG 418 ==
LOC: EC 08:07 → 6PED 11:31 → 3SUR 05-26 18:02
PROVIDERS: ADMIT Surgery Plastic and Reconstructive Surgery; ATTEND Surgery Plastic and Reconstructive Surgery
PROC: 0FT44ZZ Resection of Gallbladder, Percutaneous Endoscopic Approach (ICD-10-PCS; principal; 2017-05-25)
DX: K80.62 Calculus of gallbladder and bile duct with acute cholecystitis without obstruction (principal); K82.1 Hydrops of gallbladder; E66.01 Morbid (severe) obesity due to excess calories; E80.4 Gilbert syndrome; K21.9 Gastro-esophageal reflux disease without esophagitis; K40.90 Unilateral inguinal hernia, without obstruction or gangrene, not specified as recurrent; Z87.891 Personal history of nicotine dependence; Z88.0 Allergy status to penicillin
CPT/HCPCS: 36415; 74181; 76705; 80053; 80074; 81001; 82150; 82248; 83690; 83735; 85025; 88304; 96361; 96374; 96375; 99285

== ENCOUNTER 2017-06-06 12:37 | Inpatient (IN) | payer BC ==
[2017-06-06] MEDS ORDERED: SODIUM CHLORIDE 0.9% 1,000 ML IV STA ×2 (12:55)
[2017-06-06] MEDS ORDERED: ONDANSETRON 4 MG/2 ML VIAL IVP STA (12:55)
[2017-06-06] MEDS ORDERED: HYDROmorphone 1 MG/ML 1 ML SYRINGE IVP STA (12:55)
--- NOTE | 2017-06-06 13:01 | ED ---
General Adult HPI <Earnest Mcmahon - Last Filed: 06/06/17 16:00> - General Source: patient, RN notes reviewed Mode of arrival: ambulatory Limitations: no limitations <Jose L Hanna - Last Filed: 06/06/17 16:05> - General Chief complaint: Nausea/Vomiting/Diarrhea Stated complaint: Vomiting Time Seen by Provider: 06/06/17 12:47 - History of Present Illness Initial comments: Patient is a 47-year-old female status post cholecystectomy times one week, who presents emergency room today with a chief complaint of increased abdominal pain with nausea vomiting over the last for 5 days. She does admit that she's had a difficult time keeping down any fluids. She states that she has had some abdominal pain in the epigastric area. She states that today she began having some discomfort In the right upper flank area. She denies any other complaints associated symptoms at this time. Patient denies any recent fever, chills, shortness of breath, chest pain, numbness or tingling, dysuria or hematuria, constipation or diarrhea, headaches or visual changes, or any other complaints. (Jose L Hanna) - Related Data Home Medications Medication Instructions Recorded Confirmed Fluticasone Nasal [place] [Flonase 1 spray EA NOSTRIL DAILY PRN 05/25/17 06/06/17 Nasal [place]] Omeprazole Magnesium [Prilosec OTC] 20 mg PO ONCE PRN 06/06/17 06/06/17 Previous Rx's Medication Instructions Recorded Ibuprofen [Motrin] 600 mg PO Q8HR PRN #30 tab 05/26/17 Allergies Allergy/AdvReac Type Severity Reaction Status Date / Time casein Allergy Congestion Verified 06/06/17 13:26 Penicillins Allergy Unknown Verified 06/06/17 13:26 Childhood gluten AdvReac Abdominal Verified 06/06/17 13:26 Pain Milk Containing Products AdvReac Chest Pain Verified 06/06/17 13:26 Review of Systems ROS Other: All systems not noted in ROS Statement are negative. <Earnest Mcmahon - Last Filed: 06/06/17 16:00> ROS Other: All systems not noted in ROS Statement are negative. <oJse L Hanna - Last Filed: 06/06/17 16:05> ROS Statement: Those systems with pertinent positive or pertinent negative responses have been documented in the HPI. Past Medical History Past Medical History: No Reported History Additional Past Medical History / Comment(s): hernia x2 History of Any Multi-Drug Resistant Organisms: None Reported Past Surgical History: Adenoidectomy, Cholecystectomy, Tonsillectomy Additional Past Surgical History / Comment(s): 3-DandC Past Psychological History: No Psychological Hx Reported Smoking Status: Former smoker Past Alcohol Use History: Occasional Past Drug Use History: None Reported - Past Family History Mother Family Medical History: No Reported History <Jose L Hanna - Last Filed: 06/06/17 16:05> General Exam <Earnest Mcmahon - Last Filed: 06/06/17 16:00> Limitations: no limitations <Jose L Hanna - Last Filed: 06/06/17 16:05> - General Exam Comments Initial Comments: General: The patient is awake and alert, in no distress, and does not appear acutely ill. Eye: Pupils are equal, round and reactive to light, extra-ocular movements are intact. No nystagmus. There is normal conjunctiva bilaterally. No signs of icterus. Ears, nose, mouth and throat: There are moist mucous membranes and no oral lesions. Neck: The neck is supple, there is no tenderness or JVD. Cardiovascular: There is a regular rate and rhythm. No murmur, rub or gallop is appreciated. Respiratory: Lungs are clear to auscultation, respirations are non-labored, breath sounds are equal. No wheezes, stridor, rales, or rhonchi. Gastrointestinal: Surgical incisions appear to be healing well. Surgery was left scalp. Abdomen soft on palpation. She is tender to palpation in the epigastric. There is no rebound tenderness. No guarding. No CVA tenderness. Musculoskeletal: Normal ROM, no tenderness. Strength 5/5. Sensation intact. Pulses equal bilaterally 2+. Neurological: A&O x 3. CN II-XII intact, There are no obvious motor or sensory deficits. Coordination appears grossly intact. Speech is normal. Skin: Skin is warm and dry and no rashes or lesions are noted. Psychiatric: Cooperative, appropriate mood & affect, normal judgment. (Jose L Hanna) Medical Decision Making - Lab Data Result diagrams: 06/06/17 13:15 06/06/17 13:15 <Earnest Mcmahon - Last Filed: 06/06/17 16:00> - Lab Data Result diagrams: 06/06/17 13:15 06/06/17 13:15 <Jose L Hanna - Last Filed: 06/06/17 16:05> - Medical Decision Making Medical decision-making. The patient had a gallbladder taken out approximately one week ago. 2 days ago she started having epigastric pain that radiated to the back. Her urine significantly darker today than it was on days previous. The patient's white count is 12 hemoglobin hematocrit within normal limits. Amylase 668 lipase [id number]. CAT scan was done reviewed by radiologist his impression is there is fluid within the gallbladder fossa measuring approximately 4.6 x 2.2 cm. While this could reflect postoperative fluid he could not exclude a contained bile leak. #2 mild stranding is noted adjacent to the pancreatic tail this could be postoperative in nature mild pancreatitis not excluded correlate with amylase lipase. Per Dr. Dr. Solis The case was discussed with Dr. Harris on-call general surgeon for Dr. Edward. Patient will be admitted to Dr. Edward service diagnosis of pancreatitis. He requests HIDA scan without CCK be done in the morning to look for biliary leak. Kept nothing by mouth. No antibiotics at this time. Dr. Mcmahon (Earnest Mcmahon) - Lab Data Lab Results 06/06/17 06/06/17 06/06/17 Range/Units 13:15 13:15 14:17 WBC 12.0 H (3.8-10.6) k/uL RBC 5.13 (3.80-5.40) m/uL Hgb 15.8 (11.4-16.0) gm/dL Hct 45.6 (34.0-46.0) % MCV 88.9 (80.0-100.0) fL MCH 30.7 (25.0-35.0) pg MCHC 34.6 (31.0-37.0) g/dL RDW 13.7 (11.5-15.5) % Plt Count 343 (150-450) k/uL Neutrophils % 87 % Lymphocytes % 6 % Monocytes % 5 % Eosinophils % 2 % Basophils % 0 % Neutrophils # 10.4 H (1.3-7.7) k/uL Lymphocytes # 0.7 L (1.0-4.8) k/uL Monocytes # 0.6 (0-1.0) k/uL Eosinophils # 0.2 (0-0.7) k/uL Basophils # 0.0 (0-0.2) k/uL Sodium 139 (137-145) mmol/L Potassium 3.9 (3.5-5.1) mmol/L Chloride 104 (98-107) mmol/L Carbon Dioxide 18 L (22-30) mmol/L Anion Gap 17 mmol/L BUN 17 (7-17) mg/dL Creatinine 0.70 (0.52-1.04) mg/dL Est GFR (MDRD) Af Amer >60 (>60 ml/min/1.73 sqM) Est GFR (MDRD) Non-Af >60 (>60 ml/min/1.73 sqM) Glucose 152 H (74-99) mg/dL Calcium 10.4 H (8.4-10.2) mg/dL Total Bilirubin 8.2 H (0.2-1.3) mg/dL AST 441 H (14-36) U/L ALT 1070 H (9-52) U/L Alkaline Phosphatase 431 H (38-126) U/L C-Reactive Protein 27.8 H (<10.0) mg/L Total Protein 7.5 (6.3-8.2) g/dL Albumin 4.6 (3.5-5.0) g/dL Amylase 668 H* (30-110) U/L Lipase 07721 H (23-300) U/L Urine Color Urine Appearance (Clear) Urine pH (5.0-8.0) Ur Specific [place] (1.001-1.035) Urine Protein (Negative) Urine Glucose (UA) (Negative) Urine Ketones (Negative) Urine Blood (Negative) Urine Nitrite (Negative) Urine Bilirubin (Negative) Urine Urobilinogen (<2.0) mg/dL Ur Leukocyte Esterase (Negative) Urine RBC (0-5) /hpf Urine WBC (0-5) /hpf Ur Squamous Epith Cells (0-4) /hpf Amorphous Sediment (None) /hpf Hyaline Casts (0-2) /lpf Urine Mucus (None) /hpf 06/06/17 Range/Units 14:17 WBC (3.8-10.6) k/uL RBC (3.80-5.40) m/uL Hgb (11.4-16.0) gm/dL Hct (34.0-46.0) % MCV (80.0-100.0) fL MCH (25.0-35.0) pg MCHC (31.0-37.0) g/dL RDW (11.5-15.5) % Plt Count (150-450) k/uL Neutrophils % % Lymphocytes % % Monocytes % % Eosinophils % % Basophils % % Neutrophils # (1.3-7.7) k/uL Lymphocytes # (1.0-4.8) k/uL Monocytes # (0-1.0) k/uL Eosinophils # (0-0.7) k/uL Basophils # (0-0.2) k/uL Sodium (137-145) mmol/L Potassium (3.5-5.1) mmol/L Chloride (98-107) mmol/L Carbon Dioxide (22-30) mmol/L Anion Gap mmol/L BUN (7-17) mg/dL Creatinine (0.52-1.04) mg/dL Est GFR (MDRD) Af Amer (>60 ml/min/1.73 sqM) Est GFR (MDRD) Non-Af (>60 ml/min/1.73 sqM) Glucose (74-99) mg/dL Calcium (8.4-10.2) mg/dL Total Bilirubin (0.2-1.3) mg/dL AST (14-36) U/L ALT (9-52) U/L Alkaline Phosphatase (38-126) U/L C-Reactive Protein (<10.0) mg/L Total Protein (6.3-8.2) g/dL Albumin (3.5-5.0) g/dL Amylase (30-110) U/L Lipase (23-300) U/L Urine Color Dark Brown Urine Appearance Cloudy H (Clear) Urine pH 5.5 (5.0-8.0) Ur Specific [place] 1.017 (1.001-1.035) Urine Protein 1+ H (Negative) Urine Glucose (UA) Negative (Negative) Urine Ketones 2+ H (Negative) Urine Blood Negative (Negative) Urine Nitrite Negative (Negative) Urine Bilirubin 2+ H (Negative) Urine Urobilinogen 4.0 (<2.0) mg/dL Ur Leukocyte Esterase Moderate H (Negative) Urine RBC 3 (0-5) /hpf Urine WBC 8 H (0-5) /hpf Ur Squamous Epith Cells 8 H (0-4) /hpf Amorphous Sediment Occasional H (None) /hpf Hyaline Casts 12 H (0-2) /lpf Urine Mucus Occasional H (None) /hpf Disposition <Earnest Mcmahon - Last Filed: 06/06/17 16:00> Time of Disposition: 16:05 <Jose L Hanna - Last Filed: 06/06/17 16:05> Clinical Impression: Pancreatitis Disposition: ADMITTED IP TO THIS HOSP Condition: Stable Referrals: Rhonda Adkins MD [Primary Care Provider] - 1-2 days
[2017-06-06 13:35] LABS: Basophils % (A) 0 %; CH 31.6; CHCM 35.7; Eosinophils # (A) 0.2 k/uL (0-0.7); Eosinophils % (A) 2 %; HCT 45.6 % (34.0-46.0); HDW 2.64; HGB 15.8 gm/dL (11.4-16.0); Luc # (Auto) 0.07; Luc % (Auto) 1; Lymphocytes # (A) 0.7 k/uL (1.0-4.8); Lymphocytes % (A) 6 %; MCH 30.7 pg (25.0-35.0); MCHC 34.6 g/dL (31.0-37.0); MCV 88.9 fL (80.0-100.0); Mean Platelet Volume 8.2; Monocytes # (A) 0.6 k/uL (0-1.0); Monocytes % (A) 5 %; Neutrophils # (A) 10.4 k/uL (1.3-7.7); Neutrophils % (A) 87 %; RBC 5.13 m/uL (3.80-5.40); RDW 13.7 % (11.5-15.5); WBC (Perox) 11.58
--- NOTE | 2017-06-06 13:44 | XR ---
EXAMINATION TYPE: XR KUB DATE OF EXAM: 06/06/2017 1:39 PM CLINICAL HISTORY: Abdominal pain and vomiting for 2 days. TECHNIQUE: Two Upright KUB images of the abdomen are obtained. COMPARISON: None. FINDINGS: Scattered gas is seen in non-distended stomach and small bowel loops. Gas and fecal materia l is seen in non-distended colon. Cholecystectomy clip is now present. Adjacent metallic density of u ncertain etiology There is no visceromegaly, pneumoperitoneum, or abnormal calcification appreciated. The lung bases are clear and the osseous structures are intact. IMPRESSION: Overall nonobstructive bowel gas pattern. Cholecystectomy clip is noted. Adjacent density of uncertai n etiology does not have morphology of typical cholecystectomy clips, suspect deformed or bent clip.
[2017-06-06 13:46] LABS: AST 441 U/L (14-36); Alkaline Phosphatase 431 U/L (38-126); Anion Gap 17 mmol/L; Blood Urea Nitrogen 17 mg/dL (7-17); Calcium 10.4 mg/dL (8.4-10.2); Carbon Dioxide 18 mmol/L (22-30); Chloride 104 mmol/L (98-107); Glucose 152 mg/dL (74-99); Non-African American GFR(MDRD) >60 (>60 ml/min/1.73 sqM); Potassium 3.9 mmol/L (3.5-5.1); Sodium 139 mmol/L (137-145); Total Bilirubin 8.2 mg/dL (0.2-1.3); Total Protein 7.5 g/dL (6.3-8.2)
[2017-06-06] MEDS ORDERED: RX INFO: IV CONTRAST WAS GIVEN 1 EACH MISC MISCELLANE PRN (14:14)
[2017-06-06 14:32] LABS: Amorphous Sediment,Urine Occasional /hpf; Appearance,Urine Cloudy (Clear); Bilirubin,Urine 2+ (Negative); Glucose,Urine (UA) Negative (Negative); Ketones,Urine 2+ (Negative); Leukocyte Esterase,Urine Moderate (Negative); Mucus,Urine Occasional /hpf; Nitrite,Urine Negative (Negative); PH, Urine 5.5 (5.0-8.0); Particle Count 14791; Protein,Urine 1+ (Negative); RBC,Urine 3 /hpf (0-5); Specific Gravity,Urine 1.017 (1.001-1.035); Squamous Epithelial Cell,Urine 8 /hpf (0-4); UA Billing (MACRO vs. MICRO) MICRO; WBC,Urine 8 /hpf (0-5)
[2017-06-06 14:46] LABS: Amylase 668 U/L (30-110)
[2017-06-06 14:47] LABS: ALT 1070 U/L (9-52)
--- NOTE | 2017-06-06 15:25 | CT ---
EXAMINATION TYPE: CT abdomen pelvis w con DATE OF EXAM: 06/06/2017 COMPARISON: NONE HISTORY: Abdominal pain and vomiting x4 days.recent cholecystectomy on 05-26-17. CT DLP: 1300.3 mGycm CONTRAST: CT scan of the abdomen and pelvis is performed without Oral Contrast and with IV Contrast, patient in jected with 100 mL of Omnipaque 300. FINDINGS: LUNG BASES-: No visible nodule. No infiltrate. LIVER/GB: Interval changes of recent cholecystectomy. There is fluid within the gallbladder fossa olga lidia suring approximately 4.6 x 2.2 cm. While this could reflect postoperative fluid I cannot exclude a co ntained bile leak. No free fluid is seen within the pelvis or about the liver. Intra and extrahepatic biliary ductal dilatation noted. 1.2 cm cyst at the dome of the liver. PANCREAS: Mild stranding is noted adjacent to the pancreatic tail and this could also BE postoperativ e in nature. Mild pancreatitis is not excluded. Correlate with amylase and lipase. SPLEEN: No splenic enlargement. No lesion seen. ADRENALS: No nodule. No thickening. KIDNEYS/BLADDER: No hydronephrosis. No nephrolithiasis. No disctinct renal mass. Urinary bladder g rossly unremarkable. BOWEL: Normal appendix. Normal bowel caliber. No inflammation. GENITAL ORGANS: No gross abnormality. LYMPH NODES: No greater than 1cm abdominal or pelvic lymph nodes are appreciated. AORTA: No significant abnormality. OSSEOUS STRUCTURES: No significant abnormality is seen. OTHER: Small amount of subcutaneous stranding and focal fluid within the subcutaneous fat of the ante rior abdominal wall to the left of midline compatible with postoperative change. A small focus of air within the left sided anterior abdominal wall. No evidence for pneumoperitoneum. IMPRESSION: 1. There is fluid within the gallbladder fossa measuring approximately 4.6 x 2.2 cm. While this could reflect postoperative fluid I cannot exclude a contained bile leak. 2.Mild stranding is noted adjacent to the pancreatic tail and this could also BE postoperative in hillary ure. Mild pancreatitis is not excluded. Correlate with amylase and lipase.
[2017-06-06] MEDS ORDERED: NALOXONE 0.4 MG/ML 1 ML VIAL IV PRN (16:05)
[2017-06-06] MEDS ORDERED: ONDANSETRON 4 MG/2 ML VIAL IVP PRN (16:05)
[2017-06-06] MEDS: HYDROmorphone 1 MG/ML 1 ML SYRINGE IV PRN ×2 (17:04→21:26)
[2017-06-06 18:05] VITALS: BMI 33.2
--- NOTE | 2017-06-06 20:13 | P.GSHP ---
History of Present Illness H&P Date: 06/06/17 Chief Complaint: Abdominal pain with nausea and vomiting The patient is a 47-year-old female was initially admitted on 05/25/2017, now 12 days ago with jaundice including epigastric and right upper quadrant abdominal pain. At that time, her chemistries demonstrated elevated total bilirubin between 4-5 mg/dL. Ultrasound were consistent with gallstones. Gastroenterology consultation at that time was obtained for a preoperative ERCP however was deemed unnecessary per GI as the patient was diagnosed with Gilbert syndrome for hyperbilirubinemia. As her total bilirubin level had improved she was taken to the operating room on 05/26/2017 with the following findings: 1. Moderately dilated gallbladder with acute cystic duct obstruction causing hydrops cholecystitis, 2. Left indirect inguinal hernia, type II, [place], 2 cm; 3. Extremely large gallbladder with multiple large gallstones requiring extension of left upper quadrant incision over 4 cm in size; 4. Extensive lysis of adhesions and mobilization of the gallbladder adding complexity to case by an additional hour; 5. Large clip silk trimmer used to addressed cystic duct and use of Sonicision; and 6. Extremely thick gallbladder wall adding complexity to the case including handling and mobilization of the gallbladder. She had felt very well upon discharge home and her abdominal pain had improved immediately postoperatively. Postoperative liver chemistries were normal. She had recently followed up in the hospital less than 2 days ago on 06/04/2017 where she reported nausea which had resolved by the time of her assessment in the office. She now presents to the hospital as she has severe nausea and vomiting including new epigastric abdominal pain. She presents with acute pancreatitis with enzymes over 10,000 mg/dL for lipase level as well as markedly elevated AST ALT and alkaline phosphatase levels with markedly elevated total bilirubin. 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 - Review of Systems Comment: GENERAL: Well developed and in no acute distress. Pleasant. HEENT: Has sclera icterus. Extraocular movements grossly intact. Moist buccal mucosa. Head is atraumatic, normocephalic. Hears conversational speech. No nasal drainage. NECK: Supple without lymphadenopathy. No JV distention. CHEST: Non-labored respirations and equal bilateral excursions. CARDIOVASCULAR: Regular rate and rhythm. Palpable 2+ radial pulses. ABDOMEN: Soft. Nondistended. Tender along the epigastrium without peritonitis. MUSCULOSKELETAL: No clubbing, cyanosis or edema. NEUROLOGIC: No focal or lateralizing signs. Cranial nerves II through XII grossly intact. PSYCH: Appropriate affect. Alert and oriented to person, place and time. BREAST: There are no palpable lesions along the bilateral breasts. No axillary adenopathy. SKIN: Good skin turgor. Will perfused. Past Medical History Past Medical History: No Reported History Additional Past Medical History / Comment(s): hernia x2 History of Any Multi-Drug Resistant Organisms: None Reported Past Surgical History: Adenoidectomy, Cholecystectomy, Tonsillectomy Additional Past Surgical History / Comment(s): 3-D and C Past Psychological History: No Psychological Hx Reported Smoking Status: Never smoker Past Alcohol Use History: Occasional Past Drug Use History: None Reported - Past Family History Mother Family Medical History: No Reported History Medications and Allergies Home Medications Medication Instructions Recorded Confirmed Type Fluticasone Nasal [place] [Flonase 1 spray EA NOSTRIL DAILY PRN 05/25/17 06/06/17 History Nasal [place]] Ibuprofen [Motrin] 600 mg PO Q8HR PRN #30 tab 05/26/17 06/06/17 Rx HYDROcodone/APAP 5-325MG [[place] 1 tab PO Q8H PRN 06/06/17 06/06/17 History 5-325] Omeprazole Magnesium [Prilosec OTC] 20 mg PO DAILY PRN 06/06/17 06/06/17 History Allergies Allergy/AdvReac Type Severity Reaction Status Date / Time casein Allergy Congestion Verified 06/06/17 13:26 Penicillins Allergy Unknown Verified 06/06/17 13:26 Childhood gluten AdvReac Abdominal Verified 06/06/17 13:26 Pain Milk Containing Products AdvReac Chest Pain Verified 06/06/17 13:26 Surgical - Exam Vital Signs Temp Pulse Resp BP Pulse Ox 97.9 F 94 18 143/90 99 06/06/17 12:41 06/06/17 12:41 06/06/17 12:41 06/06/17 12:41 06/06/17 12:41 CONSTITUTIONAL: Denies any fever or chills. Has recent weight loss of 5 pounds in 1 week. HEENT: Denies any trouble with hearing or nosebleeds. No difficulty swallowing. Wears glasses. LYMPHATIC: The patient denies any lumps and bumps around the neck. ENDOCRINE: Denies any thyroid disorders. Denies any blood sugar glucose intolerance. RESPIRATORY: Denies pneumonia. Denies any troubles with breathing or dyspnea on exertion. CARDIOVASCULAR: Denies any chest pain, palpitations, or recent heart attacks. GASTROINTESTINAL: Has pre-existing heart burn. No constipation or bright red blood per rectum. GENITOURINARY: Denies any blood in urine or increased urinary frequency. MUSCULOSKELETAL: Denies any back pain, stiffness, joint arthritis. NEUROLOGIC: Denies any numbness or tingling along the distal extremities. No seizure disorders or headaches. PSYCHIATRIC: Denies depression or suidical ideation. HEMATOLOGIC: Denies any abnormal bleeding or bruising. BREASTS: Denies any breast lumps, pain or nipple discharge. Results - Labs 06/06/17 13:15 06/06/17 13:15 Abnormal Lab Results - Last 24 Hours (Table) 06/06/17 06/06/17 06/06/17 Range/Units 13:15 13:15 14:17 WBC 12.0 H (3.8-10.6) k/uL Neutrophils # 10.4 H (1.3-7.7) k/uL Lymphocytes # 0.7 L (1.0-4.8) k/uL Carbon Dioxide 18 L (22-30) mmol/L Glucose 152 H (74-99) mg/dL Calcium 10.4 H (8.4-10.2) mg/dL Total Bilirubin 8.2 H (0.2-1.3) mg/dL AST 441 H (14-36) U/L ALT 1070 H (9-52) U/L Alkaline Phosphatase 431 H (38-126) U/L C-Reactive Protein 27.8 H (<10.0) mg/L Amylase 668 H* (30-110) U/L Lipase 86641 H (23-300) U/L Urine Appearance (Clear) Urine Protein (Negative) Urine Ketones (Negative) Urine Bilirubin (Negative) Ur Leukocyte Esterase (Negative) Urine WBC (0-5) /hpf Ur Squamous Epith Cells (0-4) /hpf Amorphous Sediment (None) /hpf Hyaline Casts (0-2) /lpf Urine Mucus (None) /hpf 06/06/17 Range/Units 14:17 WBC (3.8-10.6) k/uL Neutrophils # (1.3-7.7) k/uL Lymphocytes # (1.0-4.8) k/uL Carbon Dioxide (22-30) mmol/L Glucose (74-99) mg/dL Calcium (8.4-10.2) mg/dL Total Bilirubin (0.2-1.3) mg/dL AST (14-36) U/L ALT (9-52) U/L Alkaline Phosphatase (38-126) U/L C-Reactive Protein (<10.0) mg/L Amylase (30-110) U/L Lipase (23-300) U/L Urine Appearance Cloudy H (Clear) Urine Protein 1+ H (Negative) Urine Ketones 2+ H (Negative) Urine Bilirubin 2+ H (Negative) Ur Leukocyte Esterase Moderate H (Negative) Urine WBC 8 H (0-5) /hpf Ur Squamous Epith Cells 8 H (0-4) /hpf Amorphous Sediment Occasional H (None) /hpf Hyaline Casts 12 H (0-2) /lpf Urine Mucus Occasional H (None) /hpf Diabetes panel 06/06/17 Range/Units 13:15 Sodium 139 (137-145) mmol/L Potassium 3.9 (3.5-5.1) mmol/L Chloride 104 (98-107) mmol/L Carbon Dioxide 18 L (22-30) mmol/L BUN 17 (7-17) mg/dL Creatinine 0.70 (0.52-1.04) mg/dL Glucose 152 H (74-99) mg/dL Calcium 10.4 H (8.4-10.2) mg/dL AST 441 H (14-36) U/L ALT 1070 H (9-52) U/L Alkaline Phosphatase 431 H (38-126) U/L Total Protein 7.5 (6.3-8.2) g/dL Albumin 4.6 (3.5-5.0) g/dL Calcium panel 06/06/17 Range/Units 13:15 Calcium 10.4 H (8.4-10.2) mg/dL Albumin 4.6 (3.5-5.0) g/dL Pituitary panel 06/06/17 Range/Units 13:15 Sodium 139 (137-145) mmol/L Potassium 3.9 (3.5-5.1) mmol/L Chloride 104 (98-107) mmol/L Carbon Dioxide 18 L (22-30) mmol/L BUN 17 (7-17) mg/dL Creatinine 0.70 (0.52-1.04) mg/dL Glucose 152 H (74-99) mg/dL Calcium 10.4 H (8.4-10.2) mg/dL Adrenal panel 06/06/17 Range/Units 13:15 Sodium 139 (137-145) mmol/L Potassium 3.9 (3.5-5.1) mmol/L Chloride 104 (98-107) mmol/L Carbon Dioxide 18 L (22-30) mmol/L BUN 17 (7-17) mg/dL Creatinine 0.70 (0.52-1.04) mg/dL Glucose 152 H (74-99) mg/dL Calcium 10.4 H (8.4-10.2) mg/dL Total Bilirubin 8.2 H (0.2-1.3) mg/dL AST 441 H (14-36) U/L ALT 1070 H (9-52) U/L Alkaline Phosphatase 431 H (38-126) U/L Total Protein 7.5 (6.3-8.2) g/dL Albumin 4.6 (3.5-5.0) g/dL - Imaging CT scan - abdomen: report reviewed, image reviewed CT scan - pelvis: report reviewed, image reviewed (Findings consistent with dilated intrahepatic ducts including dilated CBD. Expected fluid along the gallbladder fossa. Features consistent with pancreatitis involving the tail. I personally reviewed her films.) Assessment and Plan (1) Choledocholithiasis with obstruction Status: Acute (2) Acute pancreatitis due to calculus of common bile duct Status: Acute (3) Elevated ALT measurement Status: Acute (4) Elevated AST (SGOT) Status: Acute (5) Epigastric abdominal pain Status: Acute (6) Nausea & vomiting Status: Acute (7) Jaundice Status: Acute Plan: 1. I have personally contacted the gastroenterology team regarding the patient' s prior admission including current presentation whereby ERCP is being requested by me after her pancreatitis is resolved as she presents with choledocholithiasis. 2. She has known history of hydrops cholecystitis including multiple gallstones with put her at risk for stones along the common bile duct. 3. Schedule antiemetics for intractable nausea and vomiting 4. Aggressive IV fluid hydration. 5. Repeat labs and chemistries regarding a lipase level of the resolution of pancreatitis. 6. Biliary nuclear scan is on hold as treatment with ERCP for decompression of the biliary tree is of benefit. 7. Additionally, nuclear scan has less specificity and sensitivity in the setting of acute hyperbilirubinemia with numbers over 5 mg/dL. 8. Anticipated inpatient hospitalization over 2 nights given acute pancreatitis. 9. I personally discussed the clinical care plan including answered all her questions for which she was agreeable with the course of treatment. 10. In the interim, nothing by mouth.
[2017-06-06] MEDS: PANTOPRAZOLE 40 MG/10 ML VIAL IVP SCH (21:26)
[2017-06-06] MEDS: LORATADINE-PSEUDOEPH 5-120 MG 1 EACH TAB.ER.12H PO SCH (21:27)
[2017-06-06] MEDS: SODIUM CHLORIDE 0.9% 1,000 ML IV SCH ×2 (21:27→22:39)
[2017-06-06] MEDS: LEVOFLOXACIN 500MG-D5W PMX 500 MG in DEXTROSE/WATER 1 100ML.BAG IVPB SCH (22:07)
[2017-06-06] MEDS: METOCLOPRAMIDE 5 MG/ML 2 ML VIAL IVP SCH (23:23)
[2017-06-07] MEDS: HYDROmorphone 1 MG/ML 1 ML SYRINGE IV PRN ×7 (01:57→21:09)
[2017-06-07] MEDS: ONDANSETRON 4 MG/2 ML VIAL IVP SCH ×3 (02:38→12:33)
[2017-06-07] MEDS: METOCLOPRAMIDE 5 MG/ML 2 ML VIAL IVP SCH ×3 (05:45→17:50)
[2017-06-07 07:39] LABS: Basophils % (A) 0 %; CH 30.3; CHCM 33.4; Eosinophils # (A) 0.2 k/uL (0-0.7); Eosinophils % (A) 2 %; HCT 38.6 % (34.0-46.0); HDW 2.64; HGB 12.9 gm/dL (11.4-16.0); Luc # (Auto) 0.06; Luc % (Auto) 1; Lymphocytes # (A) 0.5 k/uL (1.0-4.8); Lymphocytes % (A) 6 %; MCH 30.6 pg (25.0-35.0); MCHC 33.6 g/dL (31.0-37.0); MCV 91.2 fL (80.0-100.0); Mean Platelet Volume 7.7; Monocytes # (A) 0.6 k/uL (0-1.0); Monocytes % (A) 7 %; Neutrophils # (A) 7.9 k/uL (1.3-7.7); Neutrophils % (A) 85 %; RBC 4.23 m/uL (3.80-5.40); RDW 12.5 % (11.5-15.5); WBC 9.3 k/uL (3.8-10.6); WBC (Perox) 9.54
[2017-06-07 08:18] LABS: ALT 710 U/L (9-52); AST 253 U/L (14-36); Alkaline Phosphatase 321 U/L (38-126); Amylase 236 U/L (30-110); Anion Gap 12 mmol/L; Blood Urea Nitrogen 13 mg/dL (7-17); Carbon Dioxide 21 mmol/L (22-30); Chloride 108 mmol/L (98-107); Glucose 113 mg/dL (74-99); Non-African American GFR(MDRD) >60 (>60 ml/min/1.73 sqM); Sodium 141 mmol/L (137-145); Total Bilirubin 6.5 mg/dL (0.2-1.3); Total Protein 5.9 g/dL (6.3-8.2)
[2017-06-07] MEDS: PANTOPRAZOLE 40 MG/10 ML VIAL IVP SCH (08:57)
[2017-06-07] MEDS: LORATADINE-PSEUDOEPH 5-120 MG 1 EACH TAB.ER.12H PO SCH ×2 (10:08→20:22)
--- NOTE | 2017-06-07 11:49 | P.CONS ---
History of Present Illness - Reason for Consult Consult date: 06/07/17 Obstructive jaundice ERCP evaluation Requesting physician: Michelle Gold - History of Present Illness 47-year-old female status post laparoscopic cholecystectomy 05/26/2017 for acute cystic duct obstruction causing hydrops cholecystitis. Preoperatively patient had normal transaminases alkaline phosphatase with the exception of a total bilirubin of 1.6. Post surgery LFTs normalize. Her postoperative course uncomplicated. She has felt well up until Saturday when she started to have some intermittent nausea vague mild abdominal discomfort. Saturday/Saturday her symptoms worsened with increasing abdominal pain lethargy she noticed dark colored urine on Saturday with no changes in her bowel movements. Spouse noticed yellowing of her skin on Saturday. Pain increased in the mid epigastric region. Denies fever chills hematemesis many cheesy melena. Admission white count 12 presently 9.3. Platelet 343. Total bilirubin 8.2 presently 6.5. AST 441 presently 253. ALT 1070 presently 710. Alkaline phosphatase 431 presently 321. Lipase 13,718 presently 4099. Lipase 668 presently 236. No history of alcoholism hepatitis intravenous drug abuse or known hepatic/ pancreatic disorders. CT abdomen and pelvis fluid in the gallbladder fossa possible postoperative. Mild stranding adjacent to the pancreatic head. Intra-and extrahepatic biliary dilatation noted. Review of Systems Constitutional: Denies fever, chills, sweats, weight gain, or loss. HEENT: Negative for migraines, blurred vision or loss, earaches, drainage, tinnitus, oral mucosal lesions, dysphagia, or odynophagia. CARDIAC: Negative for chest pain, arrhythmias, or palpitation. RESPIRATORY: Negative for shortness of breath, hemoptysis, cough, or sputum production. GI: See HPI for pertinent findings. : Negative for hematuria, urgency, frequency, polyuria, or dysuria. GYNc: Denies possibility of . Negative vaginal discharge. MUSCULOSKELETAL: Negative for muscle aches, swelling, arthritis, and arthralgias. NEUROLOGIC: Negative for stroke or TIA. ENDOCRINE: Negative for thyroid problems. SKIN: Negative for rash or itching. PSYCHIATRIC: Negative history for depression and anxiety All systems: negative (See HPI) Past Medical History Past Medical History: No Reported History Additional Past Medical History / Comment(s): hernia x2 History of Any Multi-Drug Resistant Organisms: None Reported Past Surgical History: Adenoidectomy, Cholecystectomy, Tonsillectomy Additional Past Surgical History / Comment(s): 3-D and C Past Psychological History: No Psychological Hx Reported Smoking Status: Never smoker Past Alcohol Use History: Occasional Past Drug Use History: None Reported - Past Family History Mother Family Medical History: No Reported History Medications and Allergies Home Medications Medication Instructions Recorded Confirmed Type Fluticasone Nasal [place] [Flonase 1 spray EA NOSTRIL DAILY PRN 05/25/17 06/06/17 History Nasal [place]] Ibuprofen [Motrin] 600 mg PO Q8HR PRN #30 tab 05/26/17 06/06/17 Rx HYDROcodone/APAP 5-325MG [[place] 1 tab PO Q8H PRN 06/06/17 06/06/17 History 5-325] Omeprazole Magnesium [Prilosec OTC] 20 mg PO DAILY PRN 06/06/17 06/06/17 History Allergies Allergy/AdvReac Type Severity Reaction Status Date / Time casein Allergy Congestion Verified 06/06/17 13:26 Penicillins Allergy Unknown Verified 06/06/17 13:26 Childhood gluten AdvReac Abdominal Verified 06/06/17 13:26 Pain Milk Containing Products AdvReac Chest Pain Verified 06/06/17 13:26 Physical Exam Vitals: Vital Signs Temp Pulse Pulse Resp BP BP Pulse Ox 06/07/17 08:55 98.9 F 06/07/17 07:00 99.2 F 89 16 143/92 92 L 06/07/17 03:09 98.4 F 77 16 145/93 94 L 06/06/17 22:18 98.7 F 78 16 147/90 93 L 06/06/17 16:31 98.3 F 77 20 136/71 98 06/06/17 14:51 98.5 F 84 17 134/85 95 06/06/17 12:41 97.9 F 94 18 143/90 99 Intake and Output 06/06/17 06/07/17 06/07/17 22:59 06:59 14:59 Intake Total 1999 1000 Output Total 500 Balance 2000 500 Intake: Intake, IV Titration 2000 1000 Amount Sodium Chloride 0.9% 1, 1000 000 ml @ 100 mls/hr IV . Q10H STA Rx#:[id number] Sodium Chloride 0.9% 1, 1000 000 ml @ 999 mls/hr IV . Q1H1M JAYLENE Rx#:[id number] Sodium Chloride 0.9% 1, 1000 000 ml @ 999 mls/hr IV . Q1H1M STA Rx#:[id number] Oral 0 Output: Urine 500 Other: Voiding Method Toilet # Voids 1 2 Weight 102.058 kg General appearance: The patient is alert, oriented, in no acute distress. Jaundice. HET: Head is normocephalic and atraumatic. Pupils are equal and reactive. Sclerae icterus. Oropharynx is clear without lesions. Neck: Supple without lymphadenopathy. Trachea midline. Heart: S1 S2. Regular rate and rhythm. Lungs: No crackles or wheezes are heard. Abdomen: Soft, midepigastric tenderness, laparoscopic incisions well approximated without erythema or drainage. Nondistended with bowel sounds. No peritoneal signs. No palpable organomegaly or masses. Extremities: Normal skin color and turgor. No cyanosis, rash, ulceration, clubbing, or edema. Radial and pedal pulses are 2/4 bilaterally. Neurological: No focal deficits. Strength and sensation are grossly intact. Results CBC & Chem 7: 06/07/17 07:09 06/07/17 07:09 Labs: Abnormal Lab Results - Last 24 Hours (Table) 06/06/17 06/06/17 06/06/17 Range/Units 13:15 13:15 14:17 WBC 12.0 H (3.8-10.6) k/uL Neutrophils # 10.4 H (1.3-7.7) k/uL Lymphocytes # 0.7 L (1.0-4.8) k/uL Chloride (98-107) mmol/L Carbon Dioxide 18 L (22-30) mmol/L Glucose 152 H (74-99) mg/dL Calcium 10.4 H (8.4-10.2) mg/dL Total Bilirubin 8.2 H (0.2-1.3) mg/dL AST 441 H (14-36) U/L ALT 1070 H (9-52) U/L Alkaline Phosphatase 431 H (38-126) U/L C-Reactive Protein 27.8 H (<10.0) mg/L Total Protein (6.3-8.2) g/dL Amylase 668 H* (30-110) U/L Lipase 43776 H (23-300) U/L Urine Appearance (Clear) Urine Protein (Negative) Urine Ketones (Negative) Urine Bilirubin (Negative) Ur Leukocyte Esterase (Negative) Urine WBC (0-5) /hpf Ur Squamous Epith Cells (0-4) /hpf Amorphous Sediment (None) /hpf Hyaline Casts (0-2) /lpf Urine Mucus (None) /hpf 06/06/17 06/07/17 06/07/17 Range/Units 14:17 07:09 07:09 WBC (3.8-10.6) k/uL Neutrophils # 7.9 H (1.3-7.7) k/uL Lymphocytes # 0.5 L (1.0-4.8) k/uL Chloride 108 H (98-107) mmol/L Carbon Dioxide 21 L (22-30) mmol/L Glucose 113 H (74-99) mg/dL Calcium (8.4-10.2) mg/dL Total Bilirubin 6.5 H (0.2-1.3) mg/dL AST 253 H (14-36) U/L ALT 710 H (9-52) U/L Alkaline Phosphatase 321 H (38-126) U/L C-Reactive Protein (<10.0) mg/L Total Protein 5.9 L (6.3-8.2) g/dL Amylase 236 H (30-110) U/L Lipase 4099 H (23-300) U/L Urine Appearance Cloudy H (Clear) Urine Protein 1+ H (Negative) Urine Ketones 2+ H (Negative) Urine Bilirubin 2+ H (Negative) Ur Leukocyte Esterase Moderate H (Negative) Urine WBC 8 H (0-5) /hpf Ur Squamous Epith Cells 8 H (0-4) /hpf Amorphous Sediment Occasional H (None) /hpf Hyaline Casts 12 H (0-2) /lpf Urine Mucus Occasional H (None) /hpf Microbiology - Last 24 Hours (Table) 06/06/17 21:00 Urine Culture - Preliminary Urine,Voided CT scan - abdomen: report reviewed (Dr. Dow) Assessment and Plan (1) Obstructive jaundice Narrative/Plan: Status post laparoscopic cholecystectomy 05/26/2017 for cholecystitis cholelithiasis presents with new onset of jaundice with elevated transaminases and hyperbilirubinemia suspect choledocholithiasis with subsequent pancreatitis. Status: Acute (2) Acute pancreatitis due to calculus of common bile duct Status: Acute Plan: 1. IV hydration. Supportive measures. Tentative ERCP tomorrow/Saturday pending improvement of pancreatic enzymes. Check hepatitis panel. PT/INR in a.m. The domestic technician has discussed the risks, benefits and alternative therapies for the above-mentioned procedure and for both sedation/analgesia as well as necessary blood product administration, if indicated, as they pertain to this patient. The patient has indicated understanding and acceptance of the risks and procedures discussed. Thank you for this kind referral and the opportunity to participate in the care of your patient. This consultation was discussed with Dr. Dow. The impression and plan of care have been directed as dictated.
[2017-06-07] MEDS: SODIUM CHLORIDE 0.9% 1,000 ML IV SCH ×2 (12:28→21:18)
--- NOTE | 2017-06-07 12:59 | P.PN ---
<Mary Valencia Rocío - Last Filed: 06/07/17 12:37> Subjective 47-year-old female being seen on rounds. Currently is resting in bed slightly jaundiced in appearance states pain medication effective for pain control patient's been followed by GI service who tentatively are planning on an ERCP tomorrow morning pending liver function studies. The lipase presently is down 4099 on admission 13 718 the amylase is down to 236 the total bilirubin is trending down 6.5 AST and ALT are also trending patient is status post lap Cholecystectomy done May 26 for acute cystic duct obstruction causing hydrops cholecystitis Objective - Vital Signs Vital signs: Vital Signs Temp 98.9 F 06/07/17 08:55 Pulse 89 06/07/17 07:00 Resp 16 06/07/17 07:00 BP 143/92 06/07/17 07:00 Pulse Ox 92 L 06/07/17 07:00 Intake & Output 06/06/17 06/07/17 06/07/17 18:59 06:59 18:59 Intake Total 3000 Output Total 500 Balance 2500 Weight 102.058 kg Intake: Intake, IV Titration 3000 Amount Sodium Chloride 0.9% 1, 1000 000 ml @ 100 mls/hr IV . Q10H STA Rx#:[id number] Sodium Chloride 0.9% 1, 1000 000 ml @ 999 mls/hr IV . Q1H1M JAYLENE Rx#:[id number] Sodium Chloride 0.9% 1, 1000 000 ml @ 999 mls/hr IV . Q1H1M STA Rx#:[id number] Oral 0 Output: Urine 500 Other: Voiding Method Toilet # Voids 2 - Constitutional Constitutional Comment(s): GENERAL APPEARANCE: 47-year-old female jaundice patient is alert, oriented, in no acute distress. VITAL SIGNS: Reviewed HEENT: Head is normocephalic and atraumatic. Pupils are equal and reactive. The nares are patent. Oropharynx is clear without lesions. NECK: Supple without lymphadenopathy. Traches midline. HEART: S1, S2. Regular rate and rhythm. Denying chest LUNGS: No crackles or wheezes are heard. Good air movement ABDOMEN: Soft, mid epigastric pain, nondistended with good bowel sounds. No peritoneal signs. No palpable organomegaly or masses. EXTREMITIES: Normal skin color and turgor. No cyanosis, rash, ulceration, clubbing or edema. Radial pedal pulses are 2/4 bilaterally. NEUROLOGICAL: No focal deficits. Strength and sensation are grossly intact. - Labs CBC & Chem 7: 06/07/17 07:09 06/07/17 07:09 Labs: Abnormal Lab Results - Last 24 Hours (Table) 06/06/17 06/06/17 06/06/17 Range/Units 13:15 13:15 14:17 WBC 12.0 H (3.8-10.6) k/uL Neutrophils # 10.4 H (1.3-7.7) k/uL Lymphocytes # 0.7 L (1.0-4.8) k/uL Chloride (98-107) mmol/L Carbon Dioxide 18 L (22-30) mmol/L Glucose 152 H (74-99) mg/dL Calcium 10.4 H (8.4-10.2) mg/dL Total Bilirubin 8.2 H (0.2-1.3) mg/dL AST 441 H (14-36) U/L ALT 1070 H (9-52) U/L Alkaline Phosphatase 431 H (38-126) U/L C-Reactive Protein 27.8 H (<10.0) mg/L Total Protein (6.3-8.2) g/dL Amylase 668 H* (30-110) U/L Lipase 46193 H (23-300) U/L Urine Appearance (Clear) Urine Protein (Negative) Urine Ketones (Negative) Urine Bilirubin (Negative) Ur Leukocyte Esterase (Negative) Urine WBC (0-5) /hpf Ur Squamous Epith Cells (0-4) /hpf Amorphous Sediment (None) /hpf Hyaline Casts (0-2) /lpf Urine Mucus (None) /hpf 06/06/17 06/07/17 06/07/17 Range/Units : 07:09 07:09 WBC (3.8-10.6) k/uL Neutrophils # 7.9 H (1.3-7.7) k/uL Lymphocytes # 0.5 L (1.0-4.8) k/uL Chloride 108 H (98-107) mmol/L Carbon Dioxide 21 L (22-30) mmol/L Glucose 113 H (74-99) mg/dL Calcium (8.4-10.2) mg/dL Total Bilirubin 6.5 H (0.2-1.3) mg/dL AST 253 H (14-36) U/L ALT 710 H (9-52) U/L Alkaline Phosphatase 321 H (38-126) U/L C-Reactive Protein (<10.0) mg/L Total Protein 5.9 L (6.3-8.2) g/dL Amylase 236 H (30-110) U/L Lipase 4099 H (23-300) U/L Urine Appearance Cloudy H (Clear) Urine Protein 1+ H (Negative) Urine Ketones 2+ H (Negative) Urine Bilirubin 2+ H (Negative) Ur Leukocyte Esterase Moderate H (Negative) Urine WBC 8 H (0-5) /hpf Ur Squamous Epith Cells 8 H (0-4) /hpf Amorphous Sediment Occasional H (None) /hpf Hyaline Casts 12 H (0-2) /lpf Urine Mucus Occasional H (None) /hpf Microbiology - Last 24 Hours (Table) 06/06/17 21:00 Urine Culture - Preliminary Urine,Voided Assessment and Plan Plan: Impression Present on admission obstructive jaundice Status post laparoscopic cholecystectomy May 26 for cholecystitis with new onset jaundice elevated liver enzymes suspect choledocholithiasis with subsequent pancreatitis. Acute pancreatitis due to calculus left common bile duct Choledocholithiasis with obstruction Present on admission on admission nausea vomiting epigastric abdominal pain suspect due to Choledocholithiasis with obstruction Present on admission Elevated ALT measurement Present on admission Elevated AST (SGOT) Plan Continue recommendations by GI service possible ERCP in the morning IV fluid for hydration Repeat labs and chemistries in the morning follow results Repeat a lipase level Anti-emetics for intractable nausea vomiting as ordered Pain control DVT and GI prophylaxis further recommendations pending The above impression and plan of care have been discussed and directed by signing physician. Mary Valencia nurse practitioner acting as scribe for signing physician. <Michelle Gold N - Last Filed: 06/07/17 22:10> Objective - Vital Signs Vital signs: Vital Signs Temp 98.9 F 06/07/17 08:55 Pulse 89 06/07/17 07:00 Resp 16 06/07/17 07:00 BP 143/92 06/07/17 07:00 Pulse Ox 92 L 06/07/17 07:00 Intake & Output 06/07/17 06/07/17 06/08/17 06:59 18:59 06:59 Intake Total 3000 Output Total 500 Balance 2500 Intake: Intake, IV Titration 3000 Amount Sodium Chloride 0.9% 1, 1000 000 ml @ 100 mls/hr IV . Q10H STA Rx#:[id number] Sodium Chloride 0.9% 1, 1000 000 ml @ 999 mls/hr IV . Q1H1M JAYLENE Rx#:[id number] Sodium Chloride 0.9% 1, 1000 000 ml @ 999 mls/hr IV . Q1H1M STA Rx#:[id number] Oral 0 Output: Urine 500 Other: Voiding Method Toilet Toilet # Voids 2 3 - Labs CBC & Chem 7: 06/07/17 07:09 06/07/17 07:09 Labs: Abnormal Lab Results - Last 24 Hours (Table) 06/07/17 06/07/17 Range/Units 07:09 07:09 Neutrophils # 7.9 H (1.3-7.7) k/uL Lymphocytes # 0.5 L (1.0-4.8) k/uL Chloride 108 H (98-107) mmol/L Carbon Dioxide 21 L (22-30) mmol/L Glucose 113 H (74-99) mg/dL Total Bilirubin 6.5 H (0.2-1.3) mg/dL AST 253 H (14-36) U/L ALT 710 H (9-52) U/L Alkaline Phosphatase 321 H (38-126) U/L Total Protein 5.9 L (6.3-8.2) g/dL Amylase 236 H (30-110) U/L Lipase 4099 H (23-300) U/L Microbiology - Last 24 Hours (Table) 06/06/17 21:00 Urine Culture - Final Urine,Voided Assessment and Plan (1) Choledocholithiasis with obstruction Status: Acute (2) Acute pancreatitis due to calculus of common bile duct Status: Acute (3) Elevated ALT measurement Status: Acute (4) Elevated AST (SGOT) Status: Acute (5) Epigastric abdominal pain Status: Acute (6) Nausea & vomiting Status: Acute (7) Jaundice Status: Acute
[2017-06-07] MEDS: ONDANSETRON 4 MG/2 ML VIAL IVP PRN ×2 (15:05→21:10)
[2017-06-07] MEDS: LEVOFLOXACIN 500MG-D5W PMX 500 MG in DEXTROSE/WATER 1 100ML.BAG IVPB SCH (21:18)
--- NOTE | 2017-06-07 22:10 | P.PN ---
Progress Note - Text Patient seen and evaluated. Please note the patient already had a previous hepatitis panel from 05/25/2017 which is negative. Appreciate GI consultation. Clinical picture highly suspicious for choledocholithiasis including cause of acute pancreatitis. We'll hold on HIDA scan until bilirubin has improved to increase accuracy and specificity of this study. Full inpatient hospitalization advised with prolonged hospitalization beyond 2 days. Continue with nothing by mouth status. Overall patient reports improvement of her abdominal pain including nausea vomiting symptoms.
[2017-06-08] MEDS: METOCLOPRAMIDE 5 MG/ML 2 ML VIAL IVP SCH ×4 (00:12→18:53)
[2017-06-08] MEDS: HYDROmorphone 1 MG/ML 1 ML SYRINGE IV PRN ×3 (00:13→07:23)
[2017-06-08] MEDS: ONDANSETRON 4 MG/2 ML VIAL IVP PRN (04:41)
[2017-06-08] MEDS: SODIUM CHLORIDE 0.9% 1,000 ML IV SCH ×3 (04:41→22:31)
[2017-06-08 07:31] LABS: INR 1.1 (<1.2); Prothrombin Time 11.4 sec (9.0-12.0)
[2017-06-08 07:32] LABS: ALT 513 U/L (9-52); AST 133 U/L (14-36); Alkaline Phosphatase 300 U/L (38-126); Anion Gap 8 mmol/L; Blood Urea Nitrogen 12 mg/dL (7-17); Calcium 8.8 mg/dL (8.4-10.2); Carbon Dioxide 23 mmol/L (22-30); Chloride 107 mmol/L (98-107); Glucose 75 mg/dL (74-99); Non-African American GFR(MDRD) >60 (>60 ml/min/1.73 sqM); Sodium 138 mmol/L (137-145); Total Bilirubin 2.9 mg/dL (0.2-1.3); Total Protein 5.6 g/dL (6.3-8.2)
[2017-06-08] MEDS: PANTOPRAZOLE 40 MG/10 ML VIAL IVP SCH (07:38)
[2017-06-08] MEDS: LORATADINE-PSEUDOEPH 5-120 MG 1 EACH TAB.ER.12H PO SCH ×2 (07:38→22:31)
[2017-06-08] MEDS ORDERED: LEVOFLOXACIN 500MG-D5W PMX 500 MG in DEXTROSE/WATER 1 100ML.BAG IVPB ONE (08:00)
[2017-06-08] MEDS ORDERED: INDOMETHACIN 50MG SUPPOSITORY RECTAL ONE (08:00)
[2017-06-08] MEDS ORDERED: IV FLUID CONTINUATION 1,000 ML IV ONE (10:40)
[2017-06-08] MEDS ORDERED: IOHEXOL 300 MG/ML 50 ML BOTTLE INJ ONE ×3 (10:45→10:55)
[2017-06-08] MEDS ORDERED: PROPOFOL 10 MG/ML 20 ML VIAL IV ONE (10:45)
[2017-06-08] MEDS ORDERED: GLYCOPYRROLATE 0.2 MG/ML 2 ML VIAL ONE (10:45)
[2017-06-08] MEDS ORDERED: LACTATED RINGERS 1,000 ML IV ONE (10:48)
--- NOTE | 2017-06-08 11:32 | P.PN ---
Subjective Principal diagnosis: Choledocholithiasis The patient is a 39-year-old female admitted secondary to choledocholithiasis following laparoscopic cholecystectomy 10 days ago. She is about to undergo ERCP. She is still jaundiced. She still reports epigastric abdominal discomfort however improved. Objective - Vital Signs Vital signs: Vital Signs Temp 98.3 F 06/08/17 07:14 Pulse 74 06/08/17 07:14 Resp 16 06/08/17 07:14 BP 133/90 06/08/17 07:14 Pulse Ox 95 06/08/17 07:14 Intake & Output 06/07/17 06/08/17 06/08/17 18:59 06:59 18:59 Other: Voiding Method Toilet # Voids 3 2 - Exam GENERAL: Well developed and in no acute distress. Pleasant. HEENT: Sclera icterus. Extraocular movements grossly intact. Moist buccal mucosa. Head is atraumatic, normocephalic. Hears conversational speech. No nasal drainage. CHEST: Non-labored respirations and equal bilateral excursions. CARDIOVASCULAR: Regular rate and rhythm. Palpable 2+ radial pulses. ABDOMEN: Soft. Nondistended. Mild tenderness along the epigastrium. No peritonitis. MUSCULOSKELETAL: No clubbing, cyanosis or edema. NEUROLOGIC: No focal or lateralizing signs. PSYCH: Appropriate affect. Alert and oriented to person, place and time. SKIN: Good skin turgor. Well perfused. - Labs CBC & Chem 7: 06/07/17 07:09 06/08/17 06:57 Labs: Abnormal Lab Results - Last 24 Hours (Table) 06/08/17 Range/Units 06:57 Total Bilirubin 2.9 H (0.2-1.3) mg/dL AST 133 H (14-36) U/L ALT 513 H (9-52) U/L Alkaline Phosphatase 300 H (38-126) U/L Total Protein 5.6 L (6.3-8.2) g/dL Albumin 3.1 L (3.5-5.0) g/dL Lipase 552 H (23-300) U/L Microbiology - Last 24 Hours (Table) 06/06/17 21:00 Urine Culture - Final Urine,Voided Assessment and Plan (1) Choledocholithiasis with obstruction Status: Acute (2) Acute pancreatitis due to calculus of common bile duct Status: Acute (3) Elevated ALT measurement Status: Acute (4) Elevated AST (SGOT) Status: Acute (5) Epigastric abdominal pain Status: Acute (6) Nausea & vomiting Status: Acute (7) Jaundice Status: Acute Plan: 1. ERCP today per GI. 2. Continue postprocedure assessment with follow-up chemistries. 3. Diet per GI following ERCP. 4. Disposition pending improvement of chemistries and resolution of abdominal pain.
--- NOTE | 2017-06-08 11:43 | FL ---
FLUOROSCOPY 2 minutes and 21 seconds of fluoroscopy time were utilized during ERCP. 1 images document the procedu re.
--- NOTE | 2017-06-08 11:51 | P.PCN ---
Date of Procedure: 06/08/17 Procedure(s) Performed: Procedure: Endoscopic retrograde cholangiography and sphincterotomy and balloon extraction. Preoperative diagnosis: Gallstone pancreatitis. Postoperative diagnosis: 1. Dilated common bile duct with suggestion of filling defects. 2. Successful sphincterotomy performed and the 11.5 mm balloon catheter was passed across the sphincterotomy site fully inflated and was used to tamponade that area to obtain a post sphincterotomy cholangiogram. 3. No gallstones were seen exiting during the manipulation of the balloon which is a partially blind maneuver, but there were no filling defects on the post- sphincterotomy cholangiogram. Preparation and sedation: Was provided by anesthesia. Brief clinical history: The patient is a 47-year-old female status post laparoscopic cholecystectomy 05/26/2017 for acute cystic duct obstruction causing hydrops cholecystitis. Preoperatively patient had normal transaminases , alkaline phosphatase with the exception of elevated total bilirubin. Post surgery LFTs normalized. Her postoperative course uncomplicated. She has felt well up until few days prior to this admission when she started to have some intermittent nausea, vague mild abdominal discomfort. This was followed by 2 days of worsening of her symptoms with with increasing abdominal pain and lethargy and she noticed dark colored urine. She was also noticed to have. Discoloration of her skin. Her pain increased in the midepigastric region prompting her coming to the hospital. Denied fever, chills, hematemesis or melena. Admission white count 12 came down to 9.3. Platelet 343. Total bilirubin 8.2, then down to 6.5, today 2.9. AST 441 presently 133. ALT 1070 presently 513. Alkaline phosphatase 431 presently 300. Lipase 13,718 presently 552. Amylase 668 presently 236. No history of alcoholism hepatitis intravenous drug abuse or known hepatic/pancreatic disorders. CT abdomen and pelvis fluid in the gallbladder fossa possible postoperative. Mild stranding adjacent to the pancreatic head. Intra-and extrahepatic biliary dilatation noted. The patient was managed as gallstone pancreatitis secondary to retained common bile duct stones. This evaluation is now scheduled to rule out with confidence retained common bile duct stone. The details are summarized in the history and physical and dictated consultations and progress notes. Procedure: With the patient in the prone position and after informed consent and adequate sedation, I passed the Olympus video duodenoscope down the esophagus into the stomach then passed it through the pylorus into the duodenum and brought the papilla into view. Initial cannulation and injection with dye resulted in opacification of the biliary tree and I was then able to have a deep cannulation and inject dye as needed. The patient had evident prior cholecystectomy with no bile leakage or CBD or biliary tree abnormalities other than some dilation of the common bile duct. There was suggestion of filling defects which were observed under fluoroscopy that prompted me, in light of her history, to proceed and exchange the catheter for a sphincterotome over a guidewire. An adequate sphincterotomy was successfully performed. The 11.5 mm balloon catheter was then advanced to the proximal common bile duct over the guidewire and inflated and was withdrawn fully inflated across the sphincterotomy. No gallstones were seen exiting during this partially blind maneuver. I then used the inflated balloon to tamponade the sphincterotomy site to obtain a post sphincterotomy cholangiogram and there was no retained filling defects. The patient tolerated the procedure well. Plan: The patient was reassured. I discussed in detail with her and her . Will allow diet and further plans can be made based on her course. I will discuss with you and follow with interest and I jose be happy to see as outpatient if she has any issues in the future.
[2017-06-09] MEDS: METOCLOPRAMIDE 5 MG/ML 2 ML VIAL IVP SCH ×2 (01:48→06:11)
[2017-06-09 02:10] VITALS: RESP 16
[2017-06-09] MEDS: SODIUM CHLORIDE 0.9% 1,000 ML IV SCH (04:33)
--- NOTE | 2017-06-09 05:47 | P.PN ---
Subjective Patient is a 39-year-old white female status post ERCP yesterday. At this time she is doing well and denies any abdominal discomfort. She underwent a successful sphincterotomy and a cholangiogram which did not reveal any filling defects. She has been tolerating clear liquids. Bilirubin preoperative was 8.2 and had decreased to 2.9, amylase was 668, decreased to 236. Her lipase was 13,718 decreased to 552. Objective - Vital Signs Vital signs: Vital Signs Temp 97.9 F 06/09/17 01:31 Pulse 57 L 06/09/17 01:31 Resp 16 06/09/17 01:31 BP 134/88 06/09/17 01:31 Pulse Ox 98 06/09/17 01:31 Intake & Output 06/08/17 06/08/17 06/09/17 06:59 18:59 06:59 Intake Total 1550 937.5 Balance 1550 937.5 Intake: IV 650 Intake, IV Titration 900 437.5 Amount Levofloxacin 500Mg-D5w 100 Pmx 500 mg In Dextrose/ Water 1 100ml.bag @ 100 mls/hr IVPB DAILY JAYLENE Rx# :[id number] Sodium Chloride 0.9% 1, 800 437.5 000 ml @ 125 mls/hr IV . Q8H JAYLENE Rx#:[id number] Oral 500 Other: Voiding Method Toilet # Voids 2 1 - Constitutional General appearance: Present: obese - Respiratory Respiratory: bilateral: CTA - Cardiovascular Rhythm: regular Heart sounds: normal: S1, S2 - Gastrointestinal Gastrointestinal Comment(s): Well-healed scars from prior surgery Positive bowel sounds General gastrointestinal: Present: soft - Psychiatric Psychiatric: Present: A&O x's 3, appropriate affect, intact judgment & insight - Labs CBC & Chem 7: 06/07/17 07:09 06/08/17 06:57 Labs: Abnormal Lab Results - Last 24 Hours (Table) 06/08/17 Range/Units 06:57 Total Bilirubin 2.9 H (0.2-1.3) mg/dL AST 133 H (14-36) U/L ALT 513 H (9-52) U/L Alkaline Phosphatase 300 H (38-126) U/L Total Protein 5.6 L (6.3-8.2) g/dL Albumin 3.1 L (3.5-5.0) g/dL Lipase 552 H (23-300) U/L Assessment and Plan Plan: Impression/plan: 1. Choledocholithiasis with obstruction status post ERCP 2. Pancreatitis secondary to calculus of the common bile duct 3. Resolving jaundice/pancreatitis Plan: 1. Await a.m. laboratory studies 2. Most likely advance diet as per GI 3. Discharge home when okay with GI
[2017-06-09 07:23] LABS: Basophils % (A) 1 %; CH 31.1; CHCM 33.8; Eosinophils # (A) 0.3 k/uL (0-0.7); Eosinophils % (A) 6 %; HCT 36.1 % (34.0-46.0); HDW 2.67; HGB 11.9 gm/dL (11.4-16.0); Luc # (Auto) 0.09; Luc % (Auto) 2; Lymphocytes # (A) 0.8 k/uL (1.0-4.8); Lymphocytes % (A) 17 %; MCH 30.4 pg (25.0-35.0); MCV 92.3 fL (80.0-100.0); Mean Platelet Volume 8.4; Monocytes # (A) 0.3 k/uL (0-1.0); Monocytes % (A) 6 %; Neutrophils # (A) 3.4 k/uL (1.3-7.7); Neutrophils % (A) 69 %; RBC 3.92 m/uL (3.80-5.40); RDW 13.2 % (11.5-15.5); WBC 4.9 k/uL (3.8-10.6); WBC (Perox) 5.18
[2017-06-09 07:34] LABS: ALT 335 U/L (9-52); AST 58 U/L (14-36); Alkaline Phosphatase 234 U/L (38-126); Anion Gap 10 mmol/L; Blood Urea Nitrogen 9 mg/dL (7-17); Calcium 8.5 mg/dL (8.4-10.2); Carbon Dioxide 25 mmol/L (22-30); Chloride 105 mmol/L (98-107); Glucose 101 mg/dL (74-99); Non-African American GFR(MDRD) >60 (>60 ml/min/1.73 sqM); Potassium 3.3 mmol/L (3.5-5.1); Sodium 140 mmol/L (137-145); Total Bilirubin 1.6 mg/dL (0.2-1.3); Total Protein 5.3 g/dL (6.3-8.2)
[2017-06-09 07:41] VITALS: BP 137/89; PULSE 62; TEMP 98.6
[2017-06-09] MEDS: PANTOPRAZOLE 40 MG/10 ML VIAL IVP SCH (08:54)
[2017-06-09] MEDS: LORATADINE-PSEUDOEPH 5-120 MG 1 EACH TAB.ER.12H PO SCH (08:54)
[2017-06-09] MEDS ORDERED: LEVOFLOXACIN 500MG-D5W PMX 500 MG in DEXTROSE/WATER 1 100ML.BAG IVPB SCH (09:00)
--- NOTE | 2017-06-12 00:46 | P.DS ---
Providers Date of admission: 06/06/17 16:14 Expected date of discharge: 06/09/17 Attending physician: Michelle Gold Consults: 06/06/17 18:15 Consult Physician Routine Consulting Provider: Carmina Triana Consult Reason/Comments: choledocholithiasis Do you want consulting provider notified?: Yes Primary care physician: Rhonda Adkins - Discharge Diagnosis(es) (1) Choledocholithiasis with obstruction Status: Acute (2) Acute pancreatitis due to calculus of common bile duct Status: Acute (3) Elevated ALT measurement Status: Acute (4) Elevated AST (SGOT) Status: Acute (5) Epigastric abdominal pain Status: Acute (6) Nausea & vomiting Status: Acute (7) Jaundice Status: Acute Hospital Course: The patient is a 39-year-old female who comes in with epigastric abdominal pain including jaundiced. She had diagnostic studies consistent with choledocholithiasis. She underwent an ERCP with sphincterotomy whereby her bilirubin levels and liver enzymes were improving. Prior to discharge, her abdominal pain had improved after conservative management of prolonged nothing by mouth status. She was tolerating diet and her pain had resolved. Pertinent Studies: CT of the abdomen and pelvis demonstrating dilated intrahepatic ducts including , common bile duct. ERCP demonstrating filling defect with the CBD. Procedures: ERCP with sphincterotomy by Dr. Dow. Patient Condition at Discharge: Stable Plan - Discharge Summary New Discharge Prescriptions: No Action Fluticasone Nasal [place] [Flonase Nasal [place]] 1 spray EA NOSTRIL DAILY PRN PRN Reason: Allergy Symptoms Ibuprofen [Motrin] 600 mg PO Q8HR PRN #30 tab PRN Reason: Pain Omeprazole Magnesium [Prilosec OTC] 20 mg PO DAILY PRN PRN Reason: ACID REFLEX HYDROcodone/APAP 5-325MG [[place] 5-325] 1 tab PO Q8H PRN PRN Reason: Pain Discharge Medication List Fluticasone Nasal [place] [Flonase Nasal [place]] 1 spray EA NOSTRIL DAILY PRN 05/25 [History] Ibuprofen [Motrin] 600 mg PO Q8HR PRN #30 tab 05/26/17 [Rx] HYDROcodone/APAP 5-325MG [[place] 5-325] 1 tab PO Q8H PRN 06/06/17 [History] Omeprazole Magnesium [Prilosec OTC] 20 mg PO DAILY PRN 06/06/17 [History] Follow up Appointment(s)/Referral(s): Michelle Gold MD [STAFF PHYSICIAN] - 1 Week Rhonda Adkins MD [Primary Care Provider] - 1-2 days Patient Instructions/Handouts: Pancreatitis (DC), ERCP (Endoscopic Retrograde Cholangiopancreatography) (DC) Discharge Disposition: HOME SELF-CARE
== END 2017-06-09 10:45 | disposition home or self-care (01) | DRG 444 ==
LOC: EC 12:37 → 3SUR 16:14
PROVIDERS: ADMIT Surgery Plastic and Reconstructive Surgery; ATTEND Surgery Plastic and Reconstructive Surgery
PROC: 0F798ZZ Dilation of Common Bile Duct, Via Natural or Artificial Opening Endoscopic (ICD-10-PCS; principal; 2017-06-08 08:25)
PROC: BF111ZZ Fluoroscopy of Biliary and Pancreatic Ducts using Low Osmolar Contrast (ICD-10-PCS; 2017-06-08 08:25)
DX: K80.65 Calculus of gallbladder and bile duct with chronic cholecystitis with obstruction (principal); K85.10 Biliary acute pancreatitis without necrosis or infection; E80.4 Gilbert syndrome; K40.90 Unilateral inguinal hernia, without obstruction or gangrene, not specified as recurrent; K91.5 Postcholecystectomy syndrome; Z79.899 Other long term (current) drug therapy; Z90.49 Acquired absence of other specified parts of digestive tract; Z91.011 Allergy to milk products; Z88.0 Allergy status to penicillin; Z91.018 Allergy to other foods
CPT/HCPCS: 36415; 43262; 43277; 74000; 74177; 74328; 80053; 80074; 81001; 82150; 83690; 85025; 85610; 86140; 87086; 96361; 96374; 96375; 99285

== ENCOUNTER → 2017-06-11 | Outpatient (CLI) | payer BC ==
[2017-06-11 20:39] LABS: ALT 258 U/L (9-52); AST 66 U/L (14-36); Alkaline Phosphatase 211 U/L (38-126); Anion Gap 13 mmol/L; Blood Urea Nitrogen 7 mg/dL (7-17); Calcium 9.8 mg/dL (8.4-10.2); Carbon Dioxide 26 mmol/L (22-30); Chloride 102 mmol/L (98-107); Glucose 78 mg/dL (74-99); Non-African American GFR(MDRD) >60 (>60 ml/min/1.73 sqM); Potassium 3.6 mmol/L (3.5-5.1); Sodium 141 mmol/L (137-145); Total Bilirubin 1.5 mg/dL (0.2-1.3)
== END ==
LOC: MMGSC 15:25
PROVIDERS: ATTEND Surgery Plastic and Reconstructive Surgery
DX: K85.90 Acute pancreatitis without necrosis or infection, unspecified (principal)
CPT/HCPCS: 36415; 80053

== ENCOUNTER 2019-07-01 08:50 | Day surgery (SDC) | payer BC ==
[2019-06-29 15:52] VITALS: BMI 32.3
[2019-07-01 09:32] VITALS: TEMP 98
[2019-07-01] MEDS ORDERED: LACTATED RINGERS 1,000 ML IV ONE (09:32)
[2019-07-01] MEDS ORDERED: LIDOCAINE 1% 20 ML VIAL (10MG/ML) FOR IV START INTRADERMA ONE (09:38)
[2019-07-01] MEDS ORDERED: PROPOFOL 10 MG/ML 20 ML VIAL IV ONE (09:47)
--- NOTE | 2019-07-01 10:03 | P.PCN ---
Date of Procedure: 07/01/19 Procedure(s) Performed: BRIEF HISTORY: Patient is a 49-year-old pleasant female, scheduled for an elective colonoscopy as a part of screening for colon rectal neoplasia. His family history of colon cancer diagnosed in a maternal aunt at age 63. PROCEDURE PERFORMED: Colonoscopy. PREOPERATIVE DIAGNOSIS: Screening for colon cancer. IV sedation per Anesthesia. PROCEDURE: After informed consent was obtained, the patient, was brought into the endoscopy unit. IV sedation was administered by Anesthesia under continuous monitoring. Digital rectal examination was normal. Initially the Olympus CF-160 flexible video colonoscope was then inserted in the rectum, gradually advanced into the cecum without any difficulty. Careful examination was performed as the scope was gradually being withdrawn. Ileocecal valve and the appendiceal orifice were visualized and appeared normal. Prep was excellent. Mucosa of the cecum, ascending colon, transverse colon, descending colon, sigmoid colon, and rectum appeared normal. Retroflexion was performed in the rectum and no lesions were seen. The patient tolerated the procedure well. IMPRESSION: Normal-appearing colon from rectum to cecum no evidence of colorectal neoplasia . RECOMMENDATIONS: Findings of this examination were discussed with the patient as well as a family. She was advised to have a repeat screening colonoscopy every 10 years.
[2019-07-01 10:08] VITALS: RESP 16
[2019-07-01 10:28] VITALS: BP 108/55; PULSE 75
== END 2019-07-01 10:37 | disposition home or self-care (01) ==
LOC: ORWHC2ENDO 08:50
PROVIDERS: ATTEND Internal Medicine Gastroenterology
DX: Z12.11 Encounter for screening for malignant neoplasm of colon (principal); I10 Essential (primary) hypertension; Z80.0 Family history of malignant neoplasm of digestive organs; Z88.0 Allergy status to penicillin; Z91.011 Allergy to milk products; Z91.018 Allergy to other foods; Z79.899 Other long term (current) drug therapy
CPT/HCPCS: G0105; J2704; 45378